=== PATIENT | male | born 1980 | race African-American/Black ===

== ENCOUNTER 2017-08-25 10:22 | Emergency (ER) | payer SELFPAY ==
--- NOTE | 2017-08-25 11:45 | RAD ---
PORTABLE CHEST ONE VIEW: Date: 08-25-17 Time: 11:36 a.m. History: Cough, cold, congestion, shortness of breath, migraine, chest pain. FINDINGS: Comparison is made with exam 09-09-14. The heart size is normal. The lungs are expanded without focal areas of consolidation, pneumothorax, loren pulmonary edema or pleural effusions. IMPRESSION: No radiographic evidence of acute cardiopulmonary process. POS: C
[2017-08-25 11:50] LABS: #Eosinphils 0.1 thou/uL (0.0-0.7); #Lymphocytes 2.2 thou/uL (1.20-3.40); #Monocytes 0.7 thou/uL (0.11-0.59); #Neutrophils 3.3 thou/uL (1.40-6.50); %Basophils 0.1 % (0.0-1.0); %Eosinophils 2.1 % (0.0-10.0); %Lymphocytes 35.1 % (21.0-51.0); %Monocytes 10.6 % (0.0-10.0); Hematocrit 46.4 % (42.0-52.0); Mean Platelet Volume 7.7 fL (7.4-10.4); White Blood Cell (WBC) Count 6.3 thou/uL (4.8-10.8)
[2017-08-25] MEDS ORDERED: Ketorolac Tromethamine 30 MG/ML VIAL ONE (12:07)
[2017-08-25] MEDS ORDERED: Dexamethasone 10 MG/ML VIAL ONE (12:07)
[2017-08-25] MEDS ORDERED: Metoclopramide HCl 10 MG/2 ML VIAL ONE (12:07)
[2017-08-25 12:14] LABS: Troponin I Less than 0.010 ng/mL (< 0.028)
[2017-08-25 12:15] LABS: ALT (SGPT) 48 U/L (8-55); AST (SGOT) 24 U/L (5-34); Alkaline Phosphatase 69 U/L (40-150); Anion Gap 11 mmol/L (10-20); BUN (Urea Nitrogen) 11 mg/dL (8.9-20.6); Bilirubin, Total 0.8 mg/dL (0.2-1.2); CK (CPK) 319 U/L (30-200); Calc. Creatinine Clearance 0 mL/min (70-130); Calcium 9.5 mg/dL (7.8-10.44); Carbon Dioxide 28 mmol/L (22-29); Chloride 101 mmol/L (98-107); Estimated GFR-MDRD Greater than 90; Lipase 7 U/L (8-78); Protein, Total 7.6 g/dL (6.0-8.3)
== END 2017-08-25 13:40 | disposition home or self-care (01) ==
LOC: ERS 10:22
DX: G43.909 Migraine, unspecified, not intractable, without status migrainosus (principal); R07.89 Other chest pain; I25.2 Old myocardial infarction; I10 Essential (primary) hypertension; J45.909 Unspecified asthma, uncomplicated; F17.210 Nicotine dependence, cigarettes, uncomplicated; Z79.899 Other long term (current) drug therapy
CPT/HCPCS: 36415; 71010; 80053; 82553; 83690; 84484; 85025; 93005; 94760; 96374; 96375; J1100; J1885; J2765

== ENCOUNTER 2017-09-27 10:57 | Inpatient (IN) | payer SELFPAY ==
[2017-09-27 11:26] LABS: Bilirubin Negative (Negative); Blood, Urine Trace (Negative); Clarity CLEAR (Clear); Glucose, Urine (Dipstick) Negative (Negative); Leukocyte Moderate (Negative); Nitrite Negative (Negative); Protein, Urine (Dipstick) 100 mg/dL (Neg-Trace); Specific Gravity, Urine 1.018 (1.002-1.036); Urobilinogen 0.2 mg/dL (0.2-1.0)
[2017-09-27 11:27] LABS: #Lymphocytes 2.1 thou/uL (1.20-3.40); #Monocytes 1.1 thou/uL (0.11-0.59); #Neutrophils 7.3 thou/uL (1.40-6.50); %Basophils 0.1 % (0.0-1.0); %Eosinophils 0.1 % (0.0-10.0); %Lymphocytes 20.2 % (21.0-51.0); %Monocytes 10.1 % (0.0-10.0); %Neutrophils 69.5 % (42.0-75.0); Hemoglobin 13.7 g/dL (14.0-18.0); Mean Corpuscular HGB CONC 33.7 g/dL (32.0-36.0); Mean Corpuscular Hemoglobin 27.8 pg (27.0-31.0); Mean Corpuscular Volume 82.6 fl (80.0-94.0); Mean Platelet Volume 8.3 fL (7.4-10.4); Platelet Count 223 thou/uL (130-400); RBC Distribution Width 11.3 % (11.5-14.5); Red Blood Cell (RBC) Count 4.92 mill/uL (4.70-6.10); White Blood Cell (WBC) Count 10.4 thou/uL (4.8-10.8)
[2017-09-27 11:28] LABS: Bacteria/HPF None Seen HPF (None Seen); Hyaline Casts/LPF 0-3 HYALINE CAST LPF (0-3 Hyaline); Pathc Cast-AUWi Flag 0.27 (0-2.49); Squamous Epithelial 0-3 HPF (0-3); WBC/HPF 21-50 HPF (0-3)
[2017-09-27 11:48] LABS: ALT (SGPT) 24 U/L (8-55); AST (SGOT) 19 U/L (5-34); Albumin 4.1 g/dL (3.5-5.0); Alkaline Phosphatase 59 U/L (40-150); Anion Gap 12 mmol/L (10-20); BUN (Urea Nitrogen) 12 mg/dL (8.9-20.6); Bilirubin, Total 0.9 mg/dL (0.2-1.2); Calc. Creatinine Clearance 0 mL/min (70-130); Carbon Dioxide 25 mmol/L (22-29); Chloride 102 mmol/L (98-107); Estimated GFR-MDRD 78; Globulin 3.1 g/dL (2.4-3.5); Glucose 104 mg/dL (70-105); Lipase 12 U/L (8-78); Potassium 3.8 mmol/L (3.5-5.1); Protein, Total 7.2 g/dL (6.0-8.3); Sodium 135 mmol/L (136-145)
[2017-09-27] MEDS ORDERED: ISOVUE-370 76%-LOCM 1 ML ONE (14:37)
[2017-09-27] MEDS ORDERED: Fentanyl 100 MCG/2 ML VIAL ONE ×2 (16:56→19:27)
[2017-09-27] MEDS ORDERED: diphenhydrAMINE 50 MG/ML VIAL ONE (16:57)
[2017-09-27] MEDS ORDERED: Famotidine/PF 20 mg/2ml Vial ONE (16:57)
[2017-09-27] MEDS ORDERED: Ondansetron HCl/PF 4 MG/2 ML Vial ONE (16:57)
[2017-09-27] MEDS ORDERED: methylPREDNISolone Sod Succ/PF 125 MG/2 ML VIAL ONE (16:57)
[2017-09-27] MEDS ORDERED: metroNIDAZOLE 500 MG/100 ML BAG ONE (18:44)
--- NOTE | 2017-09-27 18:47 | CT ---
ABDOMEN CT WITH CONTRAST PELVIC CT WITH CONTRAST: Date: 09/27/17 HISTORY: Abdominal pain x3 days. Lower abdominal pain between the groin, greatest along the midline. Pain is c onstant and burning. Fever. COMPARISON: None. TECHNIQUE: Abdomen and pelvic CT are performed with IV contrast. Patient was premedicated. Coronal reformatted i mages are submitted for interpretation. Enteric contrast was not administered. FINDINGS: ABDOMEN CT: Lung bases are clear. Heart size is normal. Descending thoracic aorta and abdominal aorta have normal caliber. No periaortic fat stranding. Intra and extrahepatic portal vein is patent. Gallbladder is u nremarkable. Liver, spleen, pancreas, and adrenal glands have appropriate enhancement. No gastrohepat ic, retrocrural, or periportal lymphadenopathy. Symmetric enhancement of the kidneys. Bilaterally, no obstructive uropathy. Symmetric attenuation of psoas muscles. Nonspecific periaortic and aortocaval lymph nodes. No mesenteric mass, lymphadenopathy, or free air. No significant free fluid. Limited evaluation of the alimentary canal due to lack of oral contrast. Gastric mucosa, duodenum, an d multiple normal caliber small bowel loops are noted. Ileocecal junction is normal. Fecalization of the terminal ileum is nonspecific. Normal caliber air-filled appendix. The cecum, ascending colon, tr ansverse colon, and descending colon are unremarkable. Occasional diverticulum in descending colon. T here is mucosal thickening with pericolonic fat stranding involving the mid portion of the sigmoid co alan. There is extensive diverticulosis. There are small pockets of extraluminal air suggesting small contained perforation versus diverticula. Largest focus measures approximately 1.0 cm. There is no ev idence of abscess. There is stranding of the adjacent mesentery. PELVIC CT: Possible mild reactive changes in the dome of the urinary bladder. Small amount of free fluid in the pelvis. No mass, lymphadenopathy, or free air. No lytic or blastic lesions in the osseous structures. IMPRESSION: 1. Sigmoid colon diverticulitis. There is no evidence of abscess. However, there are small extralumi nal foci of air suggesting possible contained perforation. 2. Normal caliber appendix. Results of study discussed with Dr. Rosales on 09/27/17 at 1806 hours. CODE CR. POS: [facility]
[2017-09-27] MEDS ORDERED: Acetaminophen 325 MG TAB PO PRN (21:03)
[2017-09-27] MEDS ORDERED: Loratadine 10 MG TAB PO PRN (21:03)
[2017-09-27] MEDS ORDERED: Diabetic Tussin 200 MG/10 ML UDCUP PO PRN (21:03)
[2017-09-27] MEDS ORDERED: Mag-Al 1200 mg/1200 mg/30 ML UDCUP PO PRN (21:03)
[2017-09-27] MEDS ORDERED: Milk Of Magnesia 30 ML UDCUP PO PRN (21:03)
[2017-09-27] MEDS ORDERED: Eucerin (Mineral Oil/Petrolatum,White) 30 gm Jar TOP PRN (21:03)
[2017-09-27] MEDS ORDERED: Ondansetron ODT 4 MG TAB PO PRN (21:03)
[2017-09-27] MEDS ORDERED: Sodium Chloride 0.65% Nasal 44 ML BOT EA NARE PRN (21:03)
[2017-09-27] MEDS ORDERED: Loperamide HCl 2 MG CAP PO PRN (21:03)
[2017-09-27] MEDS ORDERED: Chloraseptic Spray 180 ml Bottle PO PRN (21:03)
[2017-09-27] MEDS ORDERED: Artificial Tears 18 DROP/0.9 ML EA EYE PRN (21:03)
[2017-09-27] MEDS ORDERED: Ondansetron HCl/PF 4 MG/2 ML Vial IVP PRN (21:03)
[2017-09-27] MEDS ORDERED: Senokot 8.6 MG TAB PO PRN (21:03)
[2017-09-27] MEDS ORDERED: Zolpidem Tartrate 5 MG TAB PO PRN (21:03)
[2017-09-27] MEDS ORDERED: hydrALAZINE 20 MG/ML VIAL SLOW IVP PRN (21:03)
[2017-09-27] MEDS ORDERED: Famotidine 20 MG TAB PO SCH (21:15)
[2017-09-27] MEDS: Sodium Chloride 0.9% 1,000 ML IV SCH (21:59)
[2017-09-28] MEDS: Morphine 5 MG/ML SYRINGE SLOW IVP PRN ×4 (00:06→23:57)
[2017-09-28] MEDS ORDERED: Albuterol Sulfate 2.5 mg/3 ml Neb NEB PRN (00:28)
--- NOTE | 2017-09-28 01:55 | HP ---
DATE OF SERVICE: 09/27/2017 PRIMARY CARE PHYSICIAN: Patient does not have any primary care physician, so [facility] call admission. REASON FOR ADMISSION: Acute diverticulitis with microperforation, suspected urinary tract infection. HISTORY OF PRESENT ILLNESS: A 37-year-old -[place] male who presented to the emergency room with complaint of left lower quadrant abdominal pain, which was started on Thursday. After eating food it had gotten worse. He denies any constipation. He denies any hematochezia. He feels nausea, but no vomiting. He denies any UTI symptoms. He denies any abdominal distention, his abdominal pain on left lower quadrant is about 6/10 in intensity, which is constant, dull aching in nature, getting wo rse with identification. He was also having fever or chills for the last one day. With these symptoms, he presented to the emergency room and he had CT of the abdomen and pelvis , whi ch showed sigmoid colon diverticulitis without any abscess, but there was small extraluminal foci of air, which was suspected for contained perforation. Patient has received IV antibiotic therapy in [facility] emergency room and subsequently he is admitted to medical floor for further treatment. Patient never had this type of problem before. He denies any family history of colon cancer. He nev er had any colonoscopy. He denies any constipation. He denies any similar problem in the past. He denies any weight loss. ALLERGIES: IODINATED CONTRAST MEDIA, ONION, and PEANUT. CURRENT MEDICATIONS: Patient is taking lisinopril 5 mg in the morning and 20 mg in the evening. REVIEW OF SYSTEMS: The following complete review of systems was negative, unless otherwise mentioned in the HPI or below: Constitutional: Weight loss or gain, ability to conduct usual activities. Skin: Rash, itching. Eyes: Double vision, pain. ENT/Mouth: Nose bleeding, neck stiffness, pain, tenderness. Cardiovascular: Palpitations, dyspnea on exertion, orthopnea. Respiratory: Shortness of breath, wheezing, cough, hemoptysis, fever or night sweats. Gastrointestinal: Poor appetite, abdominal pain, heartburn, nausea, vomiting, constipation, or diarr hea. Genitourinary: Urgency, frequency, dysuria, nocturia. Musculoskeletal: Pain, swelling. Neurologic/Psychiatric: Anxiety, depression. Allergy/Immunologic: Skin rash, bleeding tendency. Please see my HPI for pertinent positive and negative. All other review of systems reviewed and nega tive except as mentioned in the HPI. PAST MEDICAL HISTORY: Hypertension, obstructive sleep apnea, but the patient is not using any CPAP m achine, asthma, mild intermittent, tobacco abuse disorder. PAST SURGICAL HISTORY: Left hand, finger surgery. PAST PSYCHIATRIC HISTORY: Reviewed and negative. SOCIAL HISTORY: Patient drinks alcohol socially every week. He smokes about 2-3 cigarettes per day. He lives with his girlfriend. No history of illicit drug abuse. FAMILY HISTORY: No strong family history of premature coronary artery disease, stroke or cancer. No family history of colon cancer. EMERGENCY ROOM COURSE: Patient has received fentanyl 100 mcg p.o., Cipro 400 mg, Flagyl 500 mg, repe at dose of fentanyl 100 microgram, Solu-Medrol 125 mg, Pepcid 20 mg, Zofran 4 mg, Benadryl 50 mg, and IV fluid 1 liter. PHYSICAL EXAMINATION: VITAL SIGNS: On arrival, blood pressure 118/84, pulse 89, respiratory rate 20, temperature 99.9, sat uration 96% on room air, weight 104.3 kilograms. GENERAL: Patient is currently in mild distress due to pain. HEENT: Normocephalic, atraumatic. Eyes: Pupils are round, reactive to light. Extraocular muscle i ntact. ENT: Oropharynx within normal limits. Moist mucous membranes. No oral lesions. No pharyngeal eryt leidy, no exudate. NECK: Supple, no JVD, no thyromegaly, no carotid bruit, no jugular venous distention. LUNGS: Clear to auscultation without any rhonchi or rales. CARDIAC: S1, S2 regular without any murmur. ABDOMEN: Patient does have tenderness in left lower quadrant. No peritoneal signs, no distention. Bowel sounds present, no organomegaly. BACK: Unremarkable, no CVA tenderness. EXTREMITIES: Upper extremity passive movements of all joints are normal. Lower extremities: No juventino ma. Good peripheral pulsation. SKIN: No skin rash. HEMATOLOGICAL: No lymphadenopathy. PSYCHIATRIC: Normal affect. SIGNIFICANT LABS: CT of the abdomen and pelvis showing sigmoid colon diverticulitis, no abscess, but small extraluminal foci of air consistent with contained perforation, normal appendix. CBC: WBC 10 .4, hemoglobin 13.7, platelet 223. BMP: Sodium 135, potassium 3.8, chloride 102, carbon dioxide 25, anion gap 12, BUN 12, creatinine 1.25, glucose 104, calcium 9.0. LFT: AST 19, ALT 24, alkaline clemente sphatase 59, albumin 4.1, lipase 12. Urinalysis suggestive of urinary tract infection. ASSESSMENT AND PLAN: 1. Acute diverticulitis, sigmoid colon with a contained perforation. At this point, the patient szymanski s not have any acute abdomen. He has benign abdomen on exam. Patient does not need any acute surgic al intervention. We will try to treat condition medically. If patient's pain gets worse or if exami nation changed then we will consider general surgery evaluation. This patient will need 2 weeks of a ntibiotic therapy and after discharge, he will need a gastroenterology consultation for colonoscopic evaluation. While in hospital, we will continue Cipro 400 mg IV q.12 hourly and Flagyl 500 mg IV q.8 hourly. We will control his pain with morphine 4 mg every 4 hourly. We will continue clear liquid diet and once pain is getting better, then we will advance his diet. We will also provide a probioti c with Florastor 250 mg p.o. daily. We will closely monitor while in hospital. 2. Urinary tract infection, though patient does not have any urinary tract infection symptoms, but h is urinalysis was consistent with urinary tract infection. We will send urine culture. Patient is a lready on Cipro therapy. We will follow up on urine culture result. 3. Hypertension. Currently, the patient has relatively low blood pressure and that is why we will h old on antihypertensive medication and we will start antihypertensive medication. This patient also reports that he is taking lisinopril, but he feels wired side effects after taking lisinopril and candelaria t is why we will consider changing antihypertensive medication during this admission. 4. Obstructive sleep apnea, but the patient is not using any CPAP machine. 5. Asthma. We will continue albuterol nebulization as needed basis. 6. Tobacco abuse disorder. Smoking cessation counseling given. Healthy lifestyle measures discusse d with the patient. 7. Obesity with body mass index 36. Dietary education given, weight loss education given. Healthy lifestyle measures discussed with the patient. 8. Deep venous thrombosis prophylaxis. Lovenox 40 mg subcutaneously daily. 9. Gastrointestinal prophylaxis. Pepcid 20 mg p.o. b.i.d. CODE STATUS: The patient is FULL CODE. Patient does not have any surrogate decision maker. He is making decision by himself. Disposition plan based on clinical course. We are expecting patient's stay in hospital more than 2 m idnights. Plan of care discussed with the patient and family member at bedside.
[2017-09-28] MEDS: metroNIDAZOLE 500 MG in Premix Bag 1 BAG IVPB SCH ×3 (03:00→17:43)
[2017-09-28] MEDS: HYDROcodone/Acetaminophen 5/325 mg Tablet PO PRN ×2 (03:03→07:49)
[2017-09-28 05:11] LABS: #Lymphocytes 0.6 thou/uL (1.20-3.40); #Monocytes 0.2 thou/uL (0.11-0.59); #Neutrophils 6.5 thou/uL (1.40-6.50); %Basophils 0.2 % (0.0-1.0); %Eosinophils 0.1 % (0.0-10.0); %Lymphocytes 8.3 % (21.0-51.0); %Monocytes 2.2 % (0.0-10.0); %Neutrophils 89.2 % (42.0-75.0); Hemoglobin 12.3 g/dL (14.0-18.0); Mean Corpuscular HGB CONC 33.6 g/dL (32.0-36.0); Mean Corpuscular Hemoglobin 28.2 pg (27.0-31.0); Mean Corpuscular Volume 83.8 fl (80.0-94.0); Mean Platelet Volume 8.8 fL (7.4-10.4); Platelet Count 186 thou/uL (130-400); RBC Distribution Width 11.2 % (11.5-14.5); Red Blood Cell (RBC) Count 4.37 mill/uL (4.70-6.10); White Blood Cell (WBC) Count 7.3 thou/uL (4.8-10.8)
[2017-09-28 05:22] LABS: Anion Gap 11 mmol/L (10-20); BUN (Urea Nitrogen) 11 mg/dL (8.9-20.6); Calc. Creatinine Clearance 140 mL/min (70-130); Calcium 8.5 mg/dL (7.8-10.44); Carbon Dioxide 26 mmol/L (22-29); Chloride 102 mmol/L (98-107); Estimated GFR-MDRD Greater than 90; Glucose 178 mg/dL (70-105); Potassium 4.6 mmol/L (3.5-5.1); Sodium 134 mmol/L (136-145)
[2017-09-28] MEDS: Enoxaparin Sodium 40 MG/0.4 ML SYRINGE SC SCH (07:48)
[2017-09-28] MEDS: Sodium Chloride 0.9% 1,000 ML IV SCH ×3 (07:48→20:12)
[2017-09-28] MEDS: Famotidine 20 MG TAB PO SCH ×2 (07:49→20:12)
[2017-09-28] MEDS: Saccharomyces boulardii 250 MG CAP PO SCH (07:49)
[2017-09-28 11:52] VITALS: BMI 36.1
--- NOTE | 2017-09-28 14:12 | PDOC.PN ---
- Subjective Encounter Start Date: 09/28/17 Encounter Start Time: 14:11 Mr. Catalan says he continues to have abdominal pain. He rates it about a 7/10. He has not felt much improvement overnight. He is hungry however, and would like to eat more. He denies nausea or vomiting. - Objective Resuscitation Status: Resuscitation Status FULL:Full Resuscitation MAR Reviewed: Yes Vital Signs & Weight: Vital Signs (12 hours) Temp Pulse Resp BP Pulse Ox 09/28/17 08:00 97.6 F 62 16 108/71 96 09/28/17 04:00 97.9 F 63 20 123/79 96 Weight Admit Weight 231 lb Weight 231 lb I&O: 09/27/17 09/28/17 09/29/17 06:59 06:59 06:59 Intake Total 2400 400 Balance 2400 400 Result Diagrams: 09/28/17 04:15 09/28/17 04:15 Phys Exam - Physical Examination HEENT: PERRLA Respiratory: no wheezing, no rales, no rhonchi, clear to auscultation bilateral Cardiovascular: RRR, no significant murmur Gastrointestinal: soft, positive bowel sounds + Left lower quandrant tenderness no rebound or guarding Musculoskeletal: no edema Dx/Plan (1) Diverticulitis Code(s): K57.92 - DVTRCLI OF INTEST, PART UNSP, W/O PERF OR ABSCESS W/O BLEED Status: Acute (2) Hypertension Code(s): I10 - ESSENTIAL (PRIMARY) HYPERTENSION Status: Acute - Plan * Diverticulitis- will continue IV antibiotics for now. He does not have any warning signs clinically of perforation.. * HTN- blood pressure is stable * Will advance diet to full liquid
[2017-09-29] MEDS: metroNIDAZOLE 500 MG in Premix Bag 1 BAG IVPB SCH ×3 (01:51→18:12)
[2017-09-29 05:55] LABS: #Lymphocytes 1.7 thou/uL (1.20-3.40); #Monocytes 0.7 thou/uL (0.11-0.59); #Neutrophils 9.6 thou/uL (1.40-6.50); %Eosinophils 0.1 % (0.0-10.0); %Lymphocytes 13.9 % (21.0-51.0); %Monocytes 6.2 % (0.0-10.0); %Neutrophils 79.8 % (42.0-75.0); Hemoglobin 11.6 g/dL (14.0-18.0); Mean Corpuscular HGB CONC 33.2 g/dL (32.0-36.0); Mean Corpuscular Hemoglobin 27.9 pg (27.0-31.0); Mean Corpuscular Volume 83.9 fl (80.0-94.0); Mean Platelet Volume 8.9 fL (7.4-10.4); Platelet Count 224 thou/uL (130-400); RBC Distribution Width 11.1 % (11.5-14.5); Red Blood Cell (RBC) Count 4.16 mill/uL (4.70-6.10)
[2017-09-29] MEDS: Morphine 5 MG/ML SYRINGE SLOW IVP PRN ×3 (08:17→23:14)
[2017-09-29] MEDS: Enoxaparin Sodium 40 MG/0.4 ML SYRINGE SC SCH (08:17)
[2017-09-29] MEDS: Famotidine 20 MG TAB PO SCH ×2 (08:17→20:59)
[2017-09-29] MEDS: Saccharomyces boulardii 250 MG CAP PO SCH (08:17)
[2017-09-29] MEDS: Sodium Chloride 0.9% 1,000 ML IV SCH ×2 (11:57→23:14)
--- NOTE | 2017-09-29 14:48 | PDOC.PN ---
- Subjective Encounter Start Date: 09/29/17 Encounter Start Time: 14:46 Mr. Catalan was seen today in follow-up. He says he feels much better. He has less abdominal pain, and has been able to tolerate a full liquid diet. - Objective Resuscitation Status: Resuscitation Status FULL:Full Resuscitation MAR Reviewed: Yes Vital Signs & Weight: Vital Signs (12 hours) Temp Pulse Resp BP Pulse Ox 09/29/17 12:37 97.8 F 81 18 126/81 95 09/29/17 08:00 98.7 F 70 16 116/75 95 09/29/17 07:33 98.4 F 70 18 100 Weight Admit Weight 231 lb Weight 231 lb I&O: 09/28/17 09/29/17 09/30/17 06:59 06:59 06:59 Intake Total 2400 2500 240 Balance 2400 2500 240 Result Diagrams: 09/29/17 04:53 09/28/17 04:15 Phys Exam - Physical Examination HEENT: PERRLA Respiratory: no wheezing, no rales, no rhonchi Cardiovascular: RRR, no significant murmur Gastrointestinal: soft, non-tender, positive bowel sounds Musculoskeletal: no edema Dx/Plan (1) Diverticulitis Code(s): K57.92 - DVTRCLI OF INTEST, PART UNSP, W/O PERF OR ABSCESS W/O BLEED Status: Acute (2) Hypertension Code(s): I10 - ESSENTIAL (PRIMARY) HYPERTENSION Status: Acute - Plan * Diverticulitis- clinically improved- his WBC count is elevated, so will keep in the hospital one more day * Continue with a full liquid diet * HTN- blood pressure is stable * Hopefully home tomorrow.
[2017-09-29] MEDS: HYDROcodone/Acetaminophen 5/325 mg Tablet PO PRN (21:06)
[2017-09-30] MEDS: metroNIDAZOLE 500 MG in Premix Bag 1 BAG IVPB SCH ×2 (01:50→10:52)
[2017-09-30 05:04] LABS: #Lymphocytes 1.7 thou/uL (1.20-3.40); #Monocytes 1.1 thou/uL (0.11-0.59); #Neutrophils 5.6 thou/uL (1.40-6.50); %Basophils 0.4 % (0.0-1.0); %Eosinophils 0.6 % (0.0-10.0); %Lymphocytes 20.6 % (21.0-51.0); %Monocytes 12.4 % (0.0-10.0); %Neutrophils 65.9 % (42.0-75.0); Hemoglobin 12.4 g/dL (14.0-18.0); Mean Corpuscular HGB CONC 32.6 g/dL (32.0-36.0); Mean Corpuscular Hemoglobin 27.4 pg (27.0-31.0); Mean Platelet Volume 8.5 fL (7.4-10.4); Platelet Count 254 thou/uL (130-400); RBC Distribution Width 11.2 % (11.5-14.5); Red Blood Cell (RBC) Count 4.51 mill/uL (4.70-6.10); White Blood Cell (WBC) Count 8.4 thou/uL (4.8-10.8)
[2017-09-30 08:07] VITALS: BP 106/61; TEMP 99.1
[2017-09-30] MEDS: Saccharomyces boulardii 250 MG CAP PO SCH (09:46)
[2017-09-30] MEDS: Famotidine 20 MG TAB PO SCH (09:46)
[2017-09-30] MEDS: Enoxaparin Sodium 40 MG/0.4 ML SYRINGE SC SCH (09:46)
--- NOTE | 2017-09-30 12:26 | PDOC.PN ---
- Subjective Encounter Start Date: 09/30/17 Encounter Start Time: 12:25 Mr. Catalan does not have any complaints today. He is sitting up eating. He wants to go home. - Objective Resuscitation Status: Resuscitation Status FULL:Full Resuscitation MAR Reviewed: Yes Vital Signs & Weight: Vital Signs (12 hours) Temp Pulse Resp BP Pulse Ox 09/30/17 08:06 99.1 F 69 16 106/61 94 L 09/30/17 08:00 99.1 F 69 16 94 L 09/30/17 04:00 98.4 F 72 18 105/69 95 Weight Admit Weight 231 lb Weight 231 lb I&O: 09/29/17 09/30/17 10/01/17 06:59 06:59 06:59 Intake Total 2500 720 720 Balance 2500 720 720 Result Diagrams: 09/30/17 04:26 09/28/17 04:15 Phys Exam - Physical Examination HEENT: PERRLA Respiratory: no wheezing, no rales, no rhonchi Cardiovascular: RRR, no significant murmur Gastrointestinal: soft, non-tender, positive bowel sounds Musculoskeletal: no edema Dx/Plan (1) Diverticulitis Code(s): K57.92 - DVTRCLI OF INTEST, PART UNSP, W/O PERF OR ABSCESS W/O BLEED Status: Acute (2) Hypertension Code(s): I10 - ESSENTIAL (PRIMARY) HYPERTENSION Status: Acute - Plan * Acute Diverticulitis- Improved * Leukocytosis has resolved * He is tolerating p.o. * Stable for discharge home.
--- NOTE | 2017-09-30 12:54 | DIS ---
DATE OF ADMISSION: 09/27/2017 DATE OF DISCHARGE: 09/30/2017 PRIMARY CARE PHYSICIAN: The patient currently does not have a primary care physician. DISCHARGE DISPOSITION: Home. PRIMARY DISCHARGE DIAGNOSES: 1. Acute diverticulitis. 2. Hypertension. DISCHARGE MEDICATIONS: Ciprofloxacin 500 mg 1 p.o. daily for 1 week as well as Flagyl 500 mg t.i.d. for 7 days and lisinopril 5 mg in the a.m. and 20 mg at bedtime. PROCEDURES DONE DURING ADMISSION: The patient had a CT scan of the abdomen and pelvis in which it sh owed sigmoid colon diverticulitis. There was no evidence of abscess; however, there was a small extr aluminal foci of air suggesting possible contained perforation. There is normal caliber appendix CODE STATUS: FULL CODE. ALLERGIES: IODINATED CONTRAST and DYE. HOSPITAL COURSE: Mr. Catalan is a pleasant 37-year-old gentleman, who presented to the emergency room with severe abdominal pain, primarily in the lower quadrant. He had CT scan demonstrated sigmoid di verticulitis. He was admitted and started on IV antibiotics and left n.p.o. initially. After about 2 days of IV antibiotics, he began to improve and his diet was able to be advanced to a full liquid d iet. By the third day, he was asking to go home. He has remained afebrile. His white count has ret urned to normal, and as such, he is being discharged home. He was cautioned that if he has any sympt oms of recurrent abdominal pain or fever to go to either an urgent care or back to emergency room, as he was warned on the possibility of developing a diverticular abscess or perforation. He plans to f hannah up at the [facility] and those arrangements have already been made.
== END 2017-09-30 14:39 | disposition home or self-care (01) | DRG 392 ==
LOC: ERS 10:57 → OBSVTOIN 20:51 → T4-A 20:51
PROVIDERS: ADMIT Family Medicine; ATTEND Family Medicine
DX: K57.32 Diverticulitis of large intestine without perforation or abscess without bleeding (principal); E66.9 Obesity, unspecified; N39.0 Urinary tract infection, site not specified; F17.210 Nicotine dependence, cigarettes, uncomplicated; G47.33 Obstructive sleep apnea (adult) (pediatric); I10 Essential (primary) hypertension; J45.909 Unspecified asthma, uncomplicated; Z68.36 Body mass index [BMI] 36.0-36.9, adult
CPT/HCPCS: 36415; 74177; 80048; 80053; 81003; 81015; 83690; 85025; 87086; 96361; 96365; 96367; 96375; 96376; J2270; A4216; J0744; J1200; J1650; J2405; J2930; J3010; S0028

== ENCOUNTER 2019-12-31 12:27 | Inpatient (IN) | payer SELFPAY ==
--- NOTE | 2019-12-31 13:14 | RAD ---
RADIOGRAPH CHEST 1 VIEW: Supine DATE: 12/31/2019 12:40 PM HISTORY: 39-year-old male status post intubation for altered mental status. COMPARISON: 08/29/2018 FINDINGS: Supine positioning makes this study insensitive for the detection of pneumothorax. There is a new fin ding of diffuse ill-defined heterogeneously moderately increased attenuation at right upper, mid, and lower lung zones. New finding of indistinctness of lateral aspect of right hemidiaphragm. New end otracheal tube distal tip at mid thoracic trachea. New esophagogastric tube coursing through the medial aspect of left upper quadrant, then distal tip ascending in the gastric fundus with distal tip very close to left hemidiaphragm. New finding of gaseous distention of the stomach. No cardiomegaly. Left lung is relatively clear. IMPRESSION: 1. Haziness of the right lung. Nonspecific. 2. Possible right pleural effusion. 3. Status post intubation with endotracheal tube and esophagogastric tube. 4. Gaseous gastric distention. .
[2019-12-31 13:18] LABS: Hemoglobin 16.3 g/dL (14.0-18.0); Mean Corpuscular HGB CONC 32.6 g/dL (32.0-36.0); Mean Corpuscular Hemoglobin 28.1 pg (27.0-31.0); Mean Corpuscular Volume 86.3 fL (78.0-98.0); Mean Platelet Volume 7.8 fL (7.4-10.4); Platelet Count 280 thou/uL (130-400); RBC Distribution Width 12.1 % (11.5-14.5); Red Blood Cell (RBC) Count 5.79 mill/uL (4.70-6.10); White Blood Cell (WBC) Count 23.9 thou/uL (4.8-10.8)
[2019-12-31] MEDS ORDERED: Propofol 1,000 MG/100 ML VIAL IV ONE ×2 (13:18→17:09)
[2019-12-31 13:20] LABS: Actual Bicarbonate (HCO3a) 16.8 mEq/L (22-28); Analyzer IN Cardio ER; Base Excess (BEa) -11.6 mEq/L (-2.0 to +3.0); CO2 Tension 46.7 mmHg (35.0-45.0); Calcium, Ionized 1.09 mmol/L (1.12-1.30); Carboxyhemoglobin (COHb) 1.2 gm% (0.0-3.0); Hemoglobin (Hb) 15.9 g/dL (14.0-18.0); O2 Tension (PaO2), arterial 107.2 mmHg (80.0-100.0); Potassium - ABG Lab 4.26 mmol/L (3.70-5.30)
[2019-12-31 13:21] LABS: Puncture Site RRA; pH, Arterial 7.17 (7.35-7.45)
[2019-12-31 13:22] LABS: ALV-art Gradient 404.825 (0-20)
[2019-12-31] MEDS ORDERED: Sodium Bicarb 50 MEQ/50 ML Abboject 8.4% SYRINGE ONE (13:31)
[2019-12-31 13:36] LABS: Acetaminophen Less than 6.0 mcg/mL (10.0-30.0); Alcohol 211 mg/dL (Less than 10); Salicylate Less than 8.0 mg/dL (15.0-30.0)
[2019-12-31 13:37] LABS: ALT (SGPT) 66 U/L (8-55); AST (SGOT) 170 U/L (5-34); Albumin 3.6 g/dL (3.5-5.0); Alkaline Phosphatase 72 U/L (40-110); Anion Gap 19 mmol/L (10-20); BUN (Urea Nitrogen) 18 mg/dL (8.9-20.6); Bilirubin, Total 0.4 mg/dL (0.2-1.2); Calc. Creatinine Clearance 0 mL/min (70-130); Calcium 7.5 mg/dL (7.8-10.44); Carbon Dioxide 17 mmol/L (22-29); Chloride 109 mmol/L (98-107); Estimated GFR-MDRD 69; Globulin 2.5 g/dL (2.4-3.5); Glucose 99 mg/dL (70-105); Lipase 10 U/L (8-78); Potassium 4.7 mmol/L (3.5-5.1); Protein, Total 6.1 g/dL (6.0-8.3); Sodium 140 mmol/L (136-145)
[2019-12-31 13:39] LABS: Band 5 % (5-11); Lymphocytes 12 % (21-51); MDiff Complete? YES; Metamyelocyte 3 % (0-0); Monocytes 4 % (0-10); Myelocyte 2 % (0-0); Neutrophil 74 % (42-75); Platelet Morphology Comment Appears Adequate; RBC Morphology Normal
[2019-12-31 13:53] LABS: Bilirubin Negative (Negative); Blood, Urine 3+ (Negative); Clarity Turbid (Clear); Glucose, Urine (Dipstick) Normal (Negative); Leukocyte Negative Leu/uL (Negative); Nitrite Negative (Negative); Protein, Urine (Dipstick) 70 mg/dL (Neg-Trace); RBC/HPF 0-3 HPF (0-3); Squamous Epithelial 0-3 HPF (0-3); Urobilinogen Normal mg/dL (Less than 2); WBC/HPF 0-3 HPF (0-3)
[2019-12-31] MEDS ORDERED: Fentanyl 100 MCG/2 ML VIAL ONE ×2 (13:53→14:03)
[2019-12-31] MEDS ORDERED: fentaNYL Citrate/PF 2,000 MCG in Sodium Chloride 0.9% 60 ML IV SCH ×2 (13:57→15:37)
[2019-12-31 13:59] LABS: Amphetamine Not Detected (NotDetected); Barbiturates Screen Not Detected (NotDetected); Benzodiazepine Screen Not Detected (NotDetected); Cocaine Metabolite Screen Not Detected (NotDetected); Medtox Control Line Valid? VALID (VALID); Medtox Reader # READER 4; Methadone Not Detected (NotDetected); Methamphetamine Detected (NotDetected); Opiate Screen Not Detected (NotDetected); Oxycodone Screen Not Detected (NotDetected); Phencyclidine (PCP) Detected (NotDetected); THC/Cannabinoid Screen Not Detected (NotDetected); Tricyclic Screen Not Detected (NotDetected)
[2019-12-31 14:03] LABS: CK (CPK) 11762 U/L (30-200); CKMB 114.8 ng/mL (0-6.6)
[2019-12-31 14:05] LABS: Bacteria/HPF 1+ HPF (None Seen); Mucous/LPF 1+ LPF (<2+)
[2019-12-31] MEDS ORDERED: Midazolam HCl 2 mg/2 ml Vial ONE (14:06)
[2019-12-31] MEDS ORDERED: SYSTANE 3.5 GM TUBE EA EYE PRN (15:08)
[2019-12-31] MEDS ORDERED: Acetaminophen 325 MG Suppository PR PRN (15:08)
[2019-12-31] MEDS ORDERED: Azithromycin 500 MG VIAL ONE (15:10)
[2019-12-31] MEDS ORDERED: cefTRIAXone\\ROCEPHIN 2 GM VIAL ONE (15:10)
[2019-12-31] MEDS ORDERED: Ventilator Sedation Protocol 1 EACH FS SCH (15:15)
[2019-12-31] MEDS ORDERED: Ondansetron PF 4 MG/2 ML Vial IVP PRN (15:15)
[2019-12-31] MEDS ORDERED: Ondansetron ODT 4 MG TAB PO PRN (15:15)
[2019-12-31] MEDS ORDERED: Sodium Chloride 0.9% 1,000 ML IV SCH (15:15)
--- NOTE | 2019-12-31 15:19 | CT ---
CT BRAIN NONCONTRAST: DATE: 12/31/2019 HISTORY: 39-year-old male with altered mental status: Unresponsive FINDINGS: There is no evidence of acute intra-axial or extra-axial hemorrhage. There is no midline shift or any other mass effect. There is no extra-axial fluid collection. There is no evidence of obstructive hydrocephalus. Calvarium is intact. Orogastric tube and endotracheal tube in oral cavity. Associated fluid filling and effacing oropharyngeal and nasopharyngeal airway. Total opacification of nasal cavity. Large air-fluid level opacifying two thirds of right maxillary sinus. IMPRESSION: No acute intracranial findings.
[2019-12-31] MEDS ORDERED: Lorazepam 2 MG/ML VIAL SLOW IVP PRN (15:37)
[2019-12-31] MEDS ORDERED: Fentanyl BOLUS 250 ML IVPB PRN (15:37)
[2019-12-31] MEDS ORDERED: Propofol BOLUS 1,000 MG/100 ML VIAL IV PRN (15:37)
[2019-12-31] MEDS ORDERED: DISCONTINUE PREVIOUS NARCOTIC PAIN MEDICATIONS AND BENZODIAZEPINES FS SCH (15:37)
[2019-12-31 15:57] LABS: Magnesium 1.8 mg/dL (1.6-2.6); Phosphorus 4.2 mg/dL (2.3-4.7)
[2019-12-31] MEDS ORDERED: Lorazepam 2 MG/ML VIAL ONE (16:00)
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
[2019-12-31 16:25] LABS: Lactic Acid 4.5 mmol/L (0.5-2.2)
[2019-12-31 16:38] LABS: Troponin I 0.064 ng/mL (< 0.028)
[2019-12-31] MEDS: Sodium Chloride 0.9% 1,000 ML IV SCH (17:46)
[2019-12-31] MEDS ORDERED: Multivit, Adult Inj 10 ML VIAL IV SCH (18:00)
[2019-12-31] MEDS: Piperacillin/Tazobactam 3.375 GM in Sodium Chloride 0.9% 100 ML IVPB SCH (18:20)
[2019-12-31] MEDS: Multivitamins, Adult 10 ML in Sodium Chloride 0.9% 500 ML IV SCH (18:44)
[2019-12-31 19:48] LABS: Troponin I 0.169 ng/mL (< 0.028)
[2019-12-31] MEDS: Famotidine/PF 20 mg/2ml Vial SLOW IVP SCH (20:22)
[2019-12-31] MEDS: Famotidine 40 MG/5 ML Oral Suspension PER TUBE SCH (20:28)
[2020-01-01] MEDS: Piperacillin/Tazobactam 3.375 GM in Sodium Chloride 0.9% 100 ML IVPB SCH ×5 (05:09→23:58)
[2020-01-01] MEDS: Propofol 1,000 MG/100 ML VIAL IV PRN ×5 (05:09→19:54)
[2020-01-01] MEDS: Sodium Chloride 0.9% 1,000 ML IV SCH ×6 (05:09→19:53)
[2020-01-01 07:50] LABS: Base Excess (BEa) -1.3 mEq/L (-2.0 to +3.0); CO2 Tension 29.1 mmHg (35.0-45.0); Calcium, Ionized 1.01 mmol/L (1.12-1.30); Hemoglobin (Hb) 14.5 g/dL (14.0-18.0); O2 Tension (PaO2), arterial 125.1 mmHg (80.0-100.0); Potassium - ABG Lab 4.18 mmol/L (3.70-5.30); pH, Arterial 7.48 (7.35-7.45)
[2020-01-01 07:51] LABS: ALV-art Gradient 123.725 (0-20); Puncture Site RR
[2020-01-01 08:07] LABS: Hemoglobin 13.9 g/dL (14.0-18.0); Mean Corpuscular HGB CONC 32.5 g/dL (32.0-36.0); Mean Corpuscular Hemoglobin 27.6 pg (27.0-31.0); Mean Corpuscular Volume 84.7 fL (78.0-98.0); Mean Platelet Volume 8.1 fL (7.4-10.4); Platelet Count 242 thou/uL (130-400); Red Blood Cell (RBC) Count 5.05 mill/uL (4.70-6.10); White Blood Cell (WBC) Count 15.8 thou/uL (4.8-10.8)
--- NOTE | 2020-01-01 08:16 | RAD ---
RADIOGRAPH CHEST 1 VIEW: Supine DATE: 01/01/2020 HISTORY: 39-year-old male in respiratory distress COMPARISON: 12/31/2019 FINDINGS: There is no pulmonary edema. Supine positioning makes this study insensitive for the detection of pne umothorax. Endotracheal tube remains. Esophagogastric tube remains. There is interval resolution of the diffuse hazy infiltrates in the right mid and upper lung zones. Mild haziness remains at right ba se with indistinctness of right hemidiaphragm. Interval development of subsegmental atelectasis at left midlung zone. No cardiomegaly. Left lateral costophrenic angle is sharp. IMPRESSION: 1. Interval improvement in aeration of the right lung, with resolution of infiltrates in right mid an d upper lung zones. 2. Changes remain at right base, perhaps small pleural effusion and underlying mild atelectasis or in filtrate. 3. No pulmonary edema..
[2020-01-01 08:23] LABS: ALT (SGPT) 149 U/L (8-55); AST (SGOT) 409 U/L (5-34); Albumin 2.8 g/dL (3.5-5.0); Alkaline Phosphatase 61 U/L (40-110); Anion Gap 14 mmol/L (10-20); BUN (Urea Nitrogen) 21 mg/dL (8.9-20.6); Bilirubin, Total 0.6 mg/dL (0.2-1.2); Calc. Creatinine Clearance 107 mL/min (70-130); Calcium 6.8 mg/dL (7.8-10.44); Carbon Dioxide 22 mmol/L (22-29); Chloride 112 mmol/L (98-107); Estimated GFR-MDRD 77; Globulin 2.3 g/dL (2.4-3.5); Glucose 94 mg/dL (70-105); Potassium 5.2 mmol/L (3.5-5.1); Protein, Total 5.1 g/dL (6.0-8.3); Sodium 143 mmol/L (136-145)
[2020-01-01 08:36] LABS: Hypersemented Neutrophil MODERATE; Lymphocytes 11 % (21-51); MDiff Complete? YES; Monocytes 6 % (0-10); Neutrophil 83 % (42-75); Platelet Morphology Comment Appears Adequate
[2020-01-01 08:50] LABS: CK (CPK) 28553 U/L (30-200)
[2020-01-01] MEDS: Famotidine 40 MG/5 ML Oral Suspension PER TUBE SCH ×2 (09:00→20:01)
[2020-01-01] MEDS: Famotidine/PF 20 mg/2ml Vial SLOW IVP SCH ×2 (09:00→19:54)
--- NOTE | 2020-01-01 11:48 | PDOC.HOSPP ---
- Subjective Encounter Date: 01/01/20 Encounter Time: 11:00 Subjective: Patient seen and examined for resp failure/OD. On Vent. No overnight events - Objective Vital Signs & Weight: Vital Signs (12 hours) Temp Pulse Resp BP Pulse Ox 01/01/20 10:26 94 127/87 01/01/20 10:00 24 H 01/01/20 08:00 100.0 F H 24 H 01/01/20 07:08 94 129/90 100 01/01/20 06:00 24 H 01/01/20 04:00 99.6 F 24 H 01/01/20 02:46 97 119/85 01/01/20 02:00 24 H 01/01/20 00:00 99.9 F H 24 H Weight Weight 214 lb 15.211 oz Most Recent Monitor Data Heart Rate from ECG 96 NIBP 139/104 NIBP BP-Mean 115 Respiration from ECG 24 SpO2 100 I&O: 12/31/19 01/01/20 01/02/20 06:59 06:59 06:59 Intake Total 2703.7 30.8 Output Total 1615 250 Balance 1088.7 -219.2 Result Diagrams: 01/01/20 07:54 01/01/20 07:54 Radiology Reviewed by me: Yes (CT brain - negative, CXR - improvement) EKG Reviewed by me: Yes (Tele SR) Hospitalist ROS - Medication Medications: Active Medications Generic Name Dose Route Start Last Admin Trade Name Freq PRN Reason Stop Dose Admin Famotidine 20 mg 12/31/19 21:00 01/01/20 09:00 Pepcid SLOW IVP 20 mg Q12HR GIULIANA Administration Famotidine 20 mg 12/31/19 21:00 01/01/20 09:00 Pepcid PER TUBE Not Given BID GIULIANA Piperacillin Sod/Tazobactam 100 mls @ 200 mls/hr 12/31/19 18:00 01/01/20 05: 09 Sod 3.375 gm/ Sodium Chloride IVPB 100 mls Q6HR GIULIANA Administration Sodium Chloride 1,000 mls @ 200 mls/hr 12/31/19 15:30 01/01/20 10:57 Normal Saline 0.9% IV 1,000 mls .Q5H GIULIANA Administration Multivitamins 10 ml/ Sodium 510 mls @ 127.5 mls/hr 12/31/19 18:00 12/31/19 18 :44 Chloride IV 510 mls 1800 GIULIANA Administration Propofol 1,000 mg 12/31/19 15:37 01/01/20 10:00 Diprivan IV 01/30/20 15:37 1,000 mg INF PRN Administration TO ACHIEVE GOAL RASS Protocol - Exam General Appearance: NAD General - other findings: on Vent Heart: RRR, no gallops, no rubs, normal peripheral pulses Respiratory: no wheezes, normal chest expansion, rales (R), rhonchi (R) Gastrointestinal: soft, non-distended, no guarding, no rigidity Extremities: no cyanosis, no clubbing Skin: normal turgor, no lesions Neurological - other findings: Neuro/Psych - cannot assess due to sedation Hosp A/P - Plan DVT proph w/lovenox, DVT proph w/SCDs, GI proph 1. Acute hypoxic and hypercapnic respiratory failure secondary to drug overdose. 2. Sepsis due to aspiration pneumonia. 3. Metabolic acidosis/lactic acidosis. 4. Acute kidney injury. 5. Rhabdomyolysis secondary to drug abuse. 6. Alcohol intoxication. 7. Abnormal LFTs probably secondary to alcoholism. 8. Suspected suicidal attempt. 9. Elevated troponin secondary to rhabdomyolysis. 10. Abnormal TSH. PLAN: Cont IV NS Cont IV Zosyn Await cultures AM labs CXR/ABGs in AM Cont other meds as above
[2020-01-01] MEDS: Multivitamins, Adult 10 ML in Sodium Chloride 0.9% 500 ML IV SCH (17:17)
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
[2020-01-02] MEDS: Propofol 1,000 MG/100 ML VIAL IV PRN ×2 (01:06→05:12)
[2020-01-02] MEDS: Sodium Chloride 0.9% 1,000 ML IV SCH ×5 (03:15→21:44)
[2020-01-02 03:51] LABS: Hypochromia SLIGHT = 6-15 cells (100X) (0-5/hpf); Lymphocytes 13 % (21-51); MDiff Complete? YES; Mean Corpuscular HGB CONC 33.7 g/dL (32.0-36.0); Mean Corpuscular Hemoglobin 28.5 pg (27.0-31.0); Mean Corpuscular Volume 84.5 fL (78.0-98.0); Mean Platelet Volume 8.1 fL (7.4-10.4); Monocytes 4 % (0-10); Neutrophil 80 % (42-75); Platelet Count 186 thou/uL (130-400); Platelet Morphology Comment Appears Adequate; RBC Distribution Width 11.9 % (11.5-14.5); Reactive Lymphocytes 3 % (0-10); White Blood Cell (WBC) Count 16.3 thou/uL (4.8-10.8)
[2020-01-02 03:53] LABS: ALT (SGPT) 145 U/L (8-55); AST (SGOT) 368 U/L (5-34); Albumin 2.6 g/dL (3.5-5.0); Alkaline Phosphatase 59 U/L (40-110); Anion Gap 10 mmol/L (10-20); BUN (Urea Nitrogen) 15 mg/dL (8.9-20.6); Bilirubin, Total 1.1 mg/dL (0.2-1.2); Calc. Creatinine Clearance 116 mL/min (70-130); Calcium 7.2 mg/dL (7.8-10.44); Carbon Dioxide 22 mmol/L (22-29); Chloride 115 mmol/L (98-107); Estimated GFR-MDRD 84; Globulin 2.2 g/dL (2.4-3.5); Glucose 129 mg/dL (70-105); Magnesium 1.9 mg/dL (1.6-2.6); Potassium 3.5 mmol/L (3.5-5.1); Protein, Total 4.8 g/dL (6.0-8.3); Sodium 143 mmol/L (136-145)
[2020-01-02 04:17] LABS: CK (CPK) 21224 U/L (30-200)
[2020-01-02] MEDS: Piperacillin/Tazobactam 3.375 GM in Sodium Chloride 0.9% 100 ML IVPB SCH ×4 (05:12→23:58)
--- NOTE | 2020-01-02 07:42 | RAD ---
Exam: Chest one view HISTORY:Ventilated patient. Respiratory distress. COVID assessment. Comparison: 01/01/2020 FINDINGS: Lines and tubes: Redemonstration of endotracheal and nasogastric tube. Cardiac silhouette: Normal Aorta: Unremarkable Pulmonary vessels: Normal Costophrenic angles: Stable small right-sided pleural effusion. LUNGS: Patchy interstitial and alveolar opacities which are progressed since the previous examination . Persistent opacification of the right lung base with partial obscuration of the right hemidiaphragm Pneumothorax: None Osseous abnormalities: None IMPRESSION: Scattered interstitial and alveolar opacities as described above. Findings may be on the basis of an infiltrate. Viral pneumonia such as COVID cannot be excluded.
[2020-01-02 08:02] LABS: Actual Bicarbonate (HCO3a) 20.7 mEq/L (22-28); Base Excess (BEa) -0.9 mEq/L (-2.0 to +3.0); CO2 Tension 26.1 mmHg (35.0-45.0); Calcium, Ionized 1.09 mmol/L (1.12-1.30); Carboxyhemoglobin (COHb) 1.4 gm% (0.0-3.0); Hemoglobin (Hb) 12.5 g/dL (14.0-18.0); O2 Tension (PaO2), arterial 75.5 mmHg (80.0-100.0); Potassium - ABG Lab 3.48 mmol/L (3.70-5.30); pH, Arterial 7.52 (7.35-7.45)
[2020-01-02 08:04] LABS: Puncture Site RRA
[2020-01-02 08:05] LABS: ALV-art Gradient 105.775 (0-20)
[2020-01-02] MEDS: Famotidine/PF 20 mg/2ml Vial SLOW IVP SCH ×2 (08:59→21:05)
[2020-01-02] MEDS: Famotidine 40 MG/5 ML Oral Suspension PER TUBE SCH ×2 (09:00→21:05)
--- NOTE | 2020-01-02 11:15 | PRG ---
DATE OF SERVICE: 01/02/2020 SUBJECTIVE: Dameon Catalan would not awaken and follow commands during brief sedation holidays. OBJECTIVE: VITAL SIGNS: This morning, heart rates in 80s, blood pressure 102/ 71, respiratory rates in the teens to low 20s. LUNGS: Clear. HEART: Regular rhythm. ABDOMEN: Soft. EXTREMITIES: Without edema. LABORATORY DATA: White count 16.3, hemoglobin 12.0, platelets 186. Sodium 143, potassium 3.5, chloride 115, bicarb 22, BUN 15, creatinine 1.17. PH 7.52, CO2 of 26, pO2 of 75. IMPRESSION: 1. Respiratory failure associated with multiple substance overdose. 2. Patchy bilateral infiltrates, likely as a result of that aspiration. We will add Precedex and try to use shorter acting drugs. We will continue with Zosyn. Steroids will be added. It is unclear how soon he will be extubated, may be all depends on his clinical condition and whether or not he sustained some type of brain injury associated with his illness that led to intubation. Critical care time 35 min. Job ID: [id number] MTDD
[2020-01-02] MEDS: methylPREDNISolone Sod Succ 40 MG VIAL IVP SCH ×3 (12:20→23:58)
--- NOTE | 2020-01-02 13:28 | PDOC.HOSPP ---
- Subjective Encounter Date: 01/02/20 Encounter Time: 11:10 Subjective: on vent, does not respond to verbal stimuli or touch - Objective Vital Signs & Weight: Vital Signs (12 hours) Temp Pulse Resp BP Pulse Ox 01/02/20 11:05 76 01/02/20 10:00 15 01/02/20 08:00 99 01/02/20 07:57 18 01/02/20 07:53 84 01/02/20 07:00 97.7 F 01/02/20 05:55 24 H 01/02/20 04:00 99.7 F H 24 H 01/02/20 02:23 99 101/72 01/02/20 02:00 24 H Weight Weight 218 lb 7.649 oz Most Recent Monitor Data Heart Rate from ECG 77 NIBP 107/73 NIBP BP-Mean 84 Respiration from ECG 15 SpO2 100 I&O: 01/01/20 01/02/20 01/03/20 06:59 06:59 06:59 Intake Total 2703.7 5956.1 Output Total 1615 2745 810 Balance 1088.7 3211.1 -810 Result Diagrams: 01/02/20 03:20 01/02/20 03:20 Hospitalist ROS - Medication Medications: Active Medications Generic Name Dose Route Start Last Admin Trade Name Freq PRN Reason Stop Dose Admin Famotidine 20 mg 12/31/19 21:00 01/02/20 08:59 Pepcid SLOW IVP 20 mg Q12HR GIULIANA Administration Famotidine 20 mg 12/31/19 21:00 01/02/20 09:00 Pepcid PER TUBE Not Given BID GIULIANA Piperacillin Sod/Tazobactam 100 mls @ 200 mls/hr 12/31/19 18:00 01/02/20 12: 19 Sod 3.375 gm/ Sodium Chloride IVPB 100 mls Q6HR GIULIANA Administration Multivitamins 10 ml/ Sodium 510 mls @ 127.5 mls/hr 12/31/19 18:00 01/01/20 17 :17 Chloride IV 510 mls 1800 GIULIANA Administration Dexmedetomidine HCl 200 mcg/ 50 mls @ 0 mls/hr 01/02/20 08:45 01/02/20 08:49 Sodium Chloride IVPB 50 mls INF GIULIANA Administration Protocol Per Protocol Sodium Chloride 1,000 mls @ 100 mls/hr 01/02/20 08:38 01/02/20 08:59 Normal Saline 0.9% IV 1,000 mls .Q10H GIULIANA Administration Methylprednisolone Sodium Succinate 40 mg 01/02/20 12:00 01/02/20 12:20 Solu-Medrol IVP 40 mg Q6HR GIULIANA Administration Propofol 1,000 mg 12/31/19 15:37 01/02/20 05:12 Diprivan IV 01/30/20 15:37 1,000 mg INF PRN Administration TO ACHIEVE GOAL RASS Protocol - Exam Eye: PERRL, anicteric sclera ENT: no oropharyngeal lesions, moist mucosa Neck: supple, no JVD Heart: RRR, no murmur Respiratory: no wheezes, no rales Gastrointestinal: soft, non-tender, non-distended, normal bowel sounds Extremities: no cyanosis, no edema Neurological: cranial nerve grossly intact, no focal deficits Hosp A/P (1) Acute respiratory failure with hypoxia Code(s): J96.01 - ACUTE RESPIRATORY FAILURE WITH HYPOXIA Status: Acute (2) substance overdose Status: Acute (3) SREE (acute kidney injury) Code(s): N17.9 - ACUTE KIDNEY FAILURE, UNSPECIFIED Status: Resolved (4) Aspiration pneumonia Code(s): J69.0 - PNEUMONITIS DUE TO INHALATION OF FOOD AND VOMIT Status: Acute Qualifiers: Aspiration pneumonia type: due to regurgitated food Laterality: bilateral (5) Rhabdomyolysis Code(s): M62.82 - RHABDOMYOLYSIS Status: Acute (6) Elevated LFTs Code(s): R79.89 - OTHER SPECIFIED ABNORMAL FINDINGS OF BLOOD CHEMISTRY Status : Acute (7) Alcohol intoxication Status: Acute (8) Hypertension Code(s): I10 - ESSENTIAL (PRIMARY) HYPERTENSION Status: Chronic Qualifiers: Hypertension type: essential hypertension Qualified Code(s): I10 - Essential (primary) hypertension - Plan weaning per pulm advice on empiric zosyn, nebs, iv hydration uds was +ve for meth, pcp and alc levels of 211 ck levels and lft's are steadily decreasing, renal function is normal will obtain echo to see if for lv function with likely lvk with chr h/o substance use? hemostable
[2020-01-02] MEDS: Morphine 2 MG/ML SYRINGE SLOW IVP PRN ×2 (16:03→21:46)
[2020-01-02] MEDS: Multivitamins, Adult 10 ML in Sodium Chloride 0.9% 500 ML IV SCH (17:50)
[2020-01-03 04:06] LABS: Band 6 % (5-11); Hemoglobin 11.7 g/dL (14.0-18.0); Lymphocytes 5 % (21-51); MDiff Complete? YES; Mean Corpuscular HGB CONC 32.5 g/dL (32.0-36.0); Mean Corpuscular Hemoglobin 28.2 pg (27.0-31.0); Mean Corpuscular Volume 86.7 fL (78.0-98.0); Mean Platelet Volume 8.9 fL (7.4-10.4); Monocytes 2 % (0-10); Neutrophil 86 % (42-75); Platelet Count 188 thou/uL (130-400); Platelet Morphology Comment Appears Adequate; RBC Distribution Width 11.9 % (11.5-14.5); Reactive Lymphocytes 1 % (0-10); Red Blood Cell (RBC) Count 4.13 mill/uL (4.70-6.10); White Blood Cell (WBC) Count 18.7 thou/uL (4.8-10.8)
[2020-01-03] MEDS: Morphine 2 MG/ML SYRINGE SLOW IVP PRN (04:08)
[2020-01-03 04:23] LABS: ALT (SGPT) 166 U/L (8-55); AST (SGOT) 361 U/L (5-34); Albumin 2.9 g/dL (3.5-5.0); Alkaline Phosphatase 60 U/L (40-110); Anion Gap 13 mmol/L (10-20); BUN (Urea Nitrogen) 13 mg/dL (8.9-20.6); Bilirubin, Total 1.2 mg/dL (0.2-1.2); Calc. Creatinine Clearance 155 mL/min (70-130); Calcium 8.3 mg/dL (7.8-10.44); Carbon Dioxide 20 mmol/L (22-29); Chloride 115 mmol/L (98-107); Estimated GFR-MDRD Greater than 90; Globulin 2.6 g/dL (2.4-3.5); Glucose 169 mg/dL (70-105); Potassium 4.6 mmol/L (3.5-5.1); Protein, Total 5.5 g/dL (6.0-8.3); Sodium 143 mmol/L (136-145)
[2020-01-03 04:34] LABS: CK (CPK) 16448 U/L (30-200)
[2020-01-03] MEDS: methylPREDNISolone Sod Succ 40 MG VIAL IVP SCH ×2 (05:04→12:02)
[2020-01-03] MEDS: Piperacillin/Tazobactam 3.375 GM in Sodium Chloride 0.9% 100 ML IVPB SCH ×3 (05:05→18:11)
[2020-01-03 07:47] LABS: Actual Bicarbonate (HCO3a) 19.7 mEq/L (22-28); Base Excess (BEa) -4.7 mEq/L (-2.0 to +3.0); CO2 Tension 34.4 mmHg (35.0-45.0); Calcium, Ionized 1.16 mmol/L (1.12-1.30); Carboxyhemoglobin (COHb) 1.3 gm% (0.0-3.0); Hemoglobin (Hb) 12.3 g/dL (14.0-18.0); Potassium - ABG Lab 4.31 mmol/L (3.70-5.30); pH, Arterial 7.38 (7.35-7.45)
[2020-01-03 07:48] LABS: Puncture Site RRA
--- NOTE | 2020-01-03 07:56 | RAD ---
Chest one view HISTORY: Dyspnea. Pneumonia. Follow-up. COMPARISON: 01/02/2020. FINDINGS: Cardiac silhouette is magnified by projection. Pulmonary vasculature are unremarkable. Subtle patchy areas of ill-defined parenchymal opacity involving each lung are unchanged in appearanc e. Mediastinum is midline. Lines and tubes unchanged in position. No evidence of pneumothorax. court recording monitor leads overlie the chest. IMPRESSION : Subtle bilateral patchy infiltrates and other findings are stable.
[2020-01-03] MEDS: Famotidine/PF 20 mg/2ml Vial SLOW IVP SCH (07:59)
[2020-01-03] MEDS: Famotidine 40 MG/5 ML Oral Suspension PER TUBE SCH (08:06)
[2020-01-03] MEDS ORDERED: THIAMINE HCL IVPB ONE (11:00)
[2020-01-03] MEDS ORDERED: SODIUM CHLORIDE 0.9% IVPB ONE (11:00)
[2020-01-03] MEDS ORDERED: FOLIC ACID IVPB ONE (11:00)
--- NOTE | 2020-01-03 14:02 | PDOC.HOSPP ---
- Subjective Encounter Date: 01/03/20 Encounter Time: 12:15 Subjective: awakens easily on vent - Objective Vital Signs & Weight: Vital Signs (12 hours) Temp Pulse Resp BP Pulse Ox 01/03/20 12:00 98.8 F 01/03/20 08:00 14 100 01/03/20 07:42 48 L 01/03/20 07:00 98.6 F 01/03/20 05:54 13 01/03/20 04:00 99.6 F 14 01/03/20 03:23 57 L 109/70 Weight Admit Weight 212 lb Weight 218 lb 14.704 oz Most Recent Monitor Data Heart Rate from ECG 52 NIBP 127/85 NIBP BP-Mean 99 Respiration from ECG 18 SpO2 97 I&O: 01/02/20 01/03/20 01/04/20 06:59 06:59 06:59 Intake Total 5956.1 3763.1 46 Output Total 2745 2861 560 Balance 3211.1 902.1 -514 Result Diagrams: 01/03/20 03:39 01/03/20 03:39 Hospitalist ROS - Medication Medications: Active Medications Generic Name Dose Route Start Last Admin Trade Name Freq PRN Reason Stop Dose Admin Famotidine 20 mg 12/31/19 21:00 01/03/20 07:59 Pepcid SLOW IVP 20 mg Q12HR GIULIANA Administration Piperacillin Sod/Tazobactam 100 mls @ 200 mls/hr 12/31/19 18:00 01/03/20 12: 01 Sod 3.375 gm/ Sodium Chloride IVPB 100 mls Q6HR GIULIANA Administration Sodium Chloride 1,000 mls @ 100 mls/hr 01/02/20 08:38 01/02/20 21:44 Normal Saline 0.9% IV 1,000 mls .Q10H GIULIANA Administration Dexmedetomidine HCl 400 mcg/ 100 mls @ 0 mls/hr 01/02/20 19:15 01/03/20 07:47 Sodium Chloride IVPB 100 mls INF GIULIANA Administration Protocol Per Protocol Methylprednisolone Sodium Succinate 40 mg 01/02/20 12:00 01/03/20 12:02 Solu-Medrol IVP 40 mg Q6HR GIULIANA Administration Morphine Sulfate 2 mg 12/31/19 15:37 01/03/20 04:08 Morphine SLOW IVP 01/30/20 15:37 2 mg Q1H PRN Administration BREAKTHROUGH PAIN/Agitation Propofol 1,000 mg 12/31/19 15:37 01/02/20 05:12 Diprivan IV 01/30/20 15:37 1,000 mg INF PRN Administration TO ACHIEVE GOAL RASS Protocol - Exam Eye: PERRL, anicteric sclera ENT: no oropharyngeal lesions, moist mucosa Neck: supple, no JVD Heart: RRR, no murmur Respiratory: no wheezes, no rales Gastrointestinal: soft, non-tender, non-distended, normal bowel sounds Extremities: no cyanosis, no edema Neurological: cranial nerve grossly intact, no focal deficits Hosp A/P (1) Acute respiratory failure with hypoxia Code(s): J96.01 - ACUTE RESPIRATORY FAILURE WITH HYPOXIA Status: Acute (2) substance overdose Status: Acute (3) SREE (acute kidney injury) Code(s): N17.9 - ACUTE KIDNEY FAILURE, UNSPECIFIED Status: Resolved (4) Aspiration pneumonia Code(s): J69.0 - PNEUMONITIS DUE TO INHALATION OF FOOD AND VOMIT Status: Acute Qualifiers: Aspiration pneumonia type: due to regurgitated food Laterality: bilateral (5) Rhabdomyolysis Code(s): M62.82 - RHABDOMYOLYSIS Status: Acute (6) Elevated LFTs Code(s): R79.89 - OTHER SPECIFIED ABNORMAL FINDINGS OF BLOOD CHEMISTRY Status : Acute (7) Alcohol intoxication Status: Acute (8) Hypertension Code(s): I10 - ESSENTIAL (PRIMARY) HYPERTENSION Status: Chronic Qualifiers: Hypertension type: essential hypertension Qualified Code(s): I10 - Essential (primary) hypertension - Plan weaning per pulm advice on empiric zosyn, nebs, iv hydration uds was +ve for meth, pcp and alc levels of 211 ck levels and lft's are steadily decreasing, renal function is normal echo shows normal ef, no signs of lvh per report hemostable
[2020-01-03] MEDS: Sodium Chloride 0.9% 1,000 ML IV SCH (15:40)
--- NOTE | 2020-01-03 17:20 | PRG ---
DATE OF SERVICE: 01/03/2020 SUBJECTIVE: Kevon Catalan awakened this morning, was following commands. He is in no distress. He passed a leak test. OBJECTIVE: VITAL SIGNS: Heart rates in 80s, blood pressure 145/92 this afternoon, respiratory rates in the teens. LUNGS: Clear. HEART: Regular rhythm. ABDOMEN: Soft. EXTREMITIES: No clubbing, cyanosis, or edema. NEURO: Nonfocal. DIAGNOSTIC STUDIES: Echocardiogram showed normal ejection fraction. Chest x-ray shows patchy infiltrates bilaterally and I suspect mucus plugging or aspiration. IMPRESSION AND PLAN: Alcohol and drug overdose, clinically stable. He has been subsequently extubated after he met criteria for weaning and extubation. He says he was up all night doing whiskey shots. It has been explained to him that he came close to dying based on some questionable life choices. He says he thinks he can stop drinking for a couple of months. He is clinically stable to move out of Critical Care Unit in my opinion. With his rhabdomyolysis, he needs to continue with IV hydration. All of his sedative drugs will be discontinued. He has been given thiamine. His chest x- rays will be discontinued. Now, we will put him on Augmentin, but I do not feel he needs IV antimicrobial therapy at this time. We will sign off when he transfers out of the Critical Care Unit. Critical care time 35 min. Job ID: [id number] MTDD
[2020-01-03] MEDS: Amoxicillin/Potassium Clav 875 MG TAB PO SCH (20:48)
[2020-01-03] MEDS: Acetaminophen 325 MG/10.15 ML UDCUP PO PRN (20:48)
[2020-01-04] MEDS: Piperacillin/Tazobactam 3.375 GM in Sodium Chloride 0.9% 100 ML IVPB SCH ×3 (01:05→13:13)
[2020-01-04 06:14] LABS: ALT (SGPT) 231 U/L (8-55); AST (SGOT) 436 U/L (5-34); Albumin 2.9 g/dL (3.5-5.0); Alkaline Phosphatase 58 U/L (40-110); Anion Gap 10 mmol/L (10-20); BUN (Urea Nitrogen) 10 mg/dL (8.9-20.6); Bilirubin, Total 0.7 mg/dL (0.2-1.2); Calc. Creatinine Clearance 155 mL/min (70-130); Calcium 7.7 mg/dL (7.8-10.44); Carbon Dioxide 20 mmol/L (22-29); Chloride 114 mmol/L (98-107); Estimated GFR-MDRD Greater than 90; Globulin 2.5 g/dL (2.4-3.5); Glucose 108 mg/dL (70-105); Hemoglobin 10.2 g/dL (14.0-18.0); Hypochromia SLIGHT = 6-15 cells (100X) (0-5/hpf); Lymphocytes 8 % (21-51); MDiff Complete? YES; Mean Corpuscular HGB CONC 30.7 g/dL (32.0-36.0); Mean Corpuscular Volume 87.7 fL (78.0-98.0); Mean Platelet Volume 8.8 fL (7.4-10.4); Monocytes 7 % (0-10); Neutrophil 85 % (42-75); Platelet Count 206 thou/uL (130-400); Platelet Morphology Comment Appears Adequate; Potassium 3.3 mmol/L (3.5-5.1); Protein, Total 5.4 g/dL (6.0-8.3); RBC Distribution Width 11.9 % (11.5-14.5); Sodium 141 mmol/L (136-145); White Blood Cell (WBC) Count 19.5 thou/uL (4.8-10.8)
[2020-01-04 06:43] LABS: CK (CPK) 15179 U/L (30-200)
[2020-01-04] MEDS: Sodium Chloride 0.9% 1,000 ML IV SCH ×2 (07:17→10:09)
[2020-01-04] MEDS: methylPREDNISolone Sod Succ 40 MG VIAL IVP SCH (08:33)
[2020-01-04] MEDS: Folic Acid 1 MG TAB PER TUBE SCH (08:37)
[2020-01-04] MEDS: Thiamine 100 MG TAB PER TUBE SCH (08:37)
[2020-01-04] MEDS: Multivit, Therapeutic 1 TAB PER TUBE SCH (08:37)
[2020-01-04] MEDS: Amoxicillin/Potassium Clav 875 MG TAB PO SCH ×2 (08:37→20:03)
[2020-01-04] MEDS: Acetaminophen 325 MG/10.15 ML UDCUP PO PRN (10:05)
--- NOTE | 2020-01-04 12:24 | PDOC.HOSPP ---
- Subjective Encounter Date: 01/04/20 Encounter Time: 09:35 Subjective: no sob, is tolerating oral diet has not ambulated yet no chest pain or palp responds well to verbal question - Objective Vital Signs & Weight: Vital Signs (12 hours) Temp Pulse Resp BP Pulse Ox 01/04/20 11:03 98.2 F 62 20 115/70 98 01/04/20 08:00 97 01/04/20 07:13 98.1 F 65 18 116/68 97 01/04/20 04:00 99.5 F 70 18 103/64 100 01/04/20 02:58 99 Weight Admit Weight 212 lb Weight 214 lb 11.684 oz Most Recent Monitor Data Heart Rate from ECG 78 NIBP 145/92 NIBP BP-Mean 109 Respiration from ECG 20 SpO2 91 I&O: 01/03/20 01/04/20 01/05/20 06:59 06:59 06:59 Intake Total 3763.1 3005 Output Total 2861 3560 Balance 902.1 -555 Result Diagrams: 01/04/20 05:38 01/04/20 05:38 Hospitalist ROS - Medication Medications: Active Medications Generic Name Dose Route Start Last Admin Trade Name Freq PRN Reason Stop Dose Admin Acetaminophen 650 mg 12/31/19 15:08 01/04/20 10:05 Tylenol Elixir PO 650 mg Q6H PRN Administration Fever > 101 or Mild Pain Amoxicillin/Clavulanate Potassium 875 mg 01/03/20 21:00 01/04/20 08:37 Augmentin PO 875 mg Q12HR GIULIANA Administration Folic Acid 1 mg 01/04/20 09:00 01/04/20 08:37 Folvite PER TUBE 1 mg DAILY GIULIANA Administration Sodium Chloride 1,000 mls @ 100 mls/hr 01/02/20 08:38 01/04/20 10:09 Normal Saline 0.9% IV 1,000 mls .Q10H GIULIANA Administration Methylprednisolone Sodium Succinate 40 mg 01/04/20 09:00 01/04/20 08:33 Solu-Medrol IVP 40 mg DAILY GIULIANA Administration Multivitamins 1 tab 01/04/20 09:00 01/04/20 08:37 Theragran PER TUBE 1 tab DAILY GIULIANA Administration Pantoprazole Sodium 40 mg 01/04/20 09:00 01/04/20 08:37 Protonix PO 40 mg DAILY GIULIANA Administration Thiamine HCl 100 mg 01/04/20 09:00 01/04/20 08:37 Thiamine PER TUBE 100 mg DAILY GIULIANA Administration - Exam General Appearance: awake alert Eye: PERRL, anicteric sclera ENT: no oropharyngeal lesions, moist mucosa Neck: supple, no JVD Heart: RRR, no murmur Respiratory: no wheezes, no rales Gastrointestinal: soft, non-tender, non-distended, normal bowel sounds Extremities: no cyanosis, no edema Neurological: cranial nerve grossly intact, no focal deficits Hosp A/P (1) Acute respiratory failure with hypoxia Code(s): J96.01 - ACUTE RESPIRATORY FAILURE WITH HYPOXIA Status: Resolved (2) substance overdose Status: Acute (3) SREE (acute kidney injury) Code(s): N17.9 - ACUTE KIDNEY FAILURE, UNSPECIFIED Status: Resolved (4) Aspiration pneumonia Code(s): J69.0 - PNEUMONITIS DUE TO INHALATION OF FOOD AND VOMIT Status: Acute Qualifiers: Aspiration pneumonia type: due to regurgitated food Laterality: bilateral (5) Rhabdomyolysis Code(s): M62.82 - RHABDOMYOLYSIS Status: Acute (6) Elevated LFTs Code(s): R79.89 - OTHER SPECIFIED ABNORMAL FINDINGS OF BLOOD CHEMISTRY Status : Acute (7) Alcohol intoxication Status: Resolved (8) Hypertension Code(s): I10 - ESSENTIAL (PRIMARY) HYPERTENSION Status: Chronic Qualifiers: Hypertension type: essential hypertension Qualified Code(s): I10 - Essential (primary) hypertension - Plan extubated 01/03/2020, is doing well on medical floor advance diet to heart healthy ambulate with PT as tolerated has persistent rhabdo with mild acidosis but renal function is normal, nephr consultation on augmentin, steroids, nebs, iv hydration uds was +ve for meth, pcp and alc levels of 211 on admission echo shows normal ef, no signs of lvh per report hemostable
[2020-01-04 13:21] LABS: Bilirubin Negative (Negative); Blood, Urine 2+ (Negative); Clarity Turbid (Clear); Glucose, Urine (Dipstick) Normal (Negative); Leukocyte 75 Leu/uL (Negative); Nitrite Negative (Negative); Protein, Urine (Dipstick) 10 mg/dL (Neg-Trace); Squamous Epithelial None Seen HPF (0-3); Urobilinogen Normal mg/dL (Less than 2); WBC/HPF 0-3 HPF (0-3)
[2020-01-04 13:22] LABS: Bacteria/HPF 1+ HPF (None Seen)
[2020-01-04 13:33] VITALS: BMI 27.6
[2020-01-04] MEDS ORDERED: Loperamide HCl 2 MG CAP PO PRN (15:42)
[2020-01-04] MEDS ORDERED: Potassium Chloride 20 MEQ TAB PO SCH (17:00)
[2020-01-04] MEDS: Sodium Bicarbonate 150 MEQ in Dextrose 5% in Water 1,000 ML IV SCH (20:03)
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
[2020-01-05 06:16] LABS: Band 5 % (5-11); Hemoglobin 10.8 g/dL (14.0-18.0); Lymphocytes 24 % (21-51); MDiff Complete? YES; Mean Corpuscular HGB CONC 32.7 g/dL (32.0-36.0); Mean Corpuscular Hemoglobin 28.2 pg (27.0-31.0); Mean Corpuscular Volume 86.4 fL (78.0-98.0); Mean Platelet Volume 8.6 fL (7.4-10.4); Monocytes 6 % (0-10); Neutrophil 65 % (42-75); Platelet Count 212 thou/uL (130-400); Platelet Morphology Comment Appears Adequate; RBC Distribution Width 11.9 % (11.5-14.5); Red Blood Cell (RBC) Count 3.81 mill/uL (4.70-6.10); White Blood Cell (WBC) Count 14.7 thou/uL (4.8-10.8)
[2020-01-05 06:22] LABS: ALT (SGPT) 219 U/L (8-55); AST (SGOT) 241 U/L (5-34); Albumin 2.9 g/dL (3.5-5.0); Alkaline Phosphatase 56 U/L (40-110); Anion Gap 8 mmol/L (10-20); BUN (Urea Nitrogen) 9 mg/dL (8.9-20.6); Bilirubin, Total 0.6 mg/dL (0.2-1.2); Calc. Creatinine Clearance 173 mL/min (70-130); Calcium 8.1 mg/dL (7.8-10.44); Carbon Dioxide 27 mmol/L (22-29); Chloride 105 mmol/L (98-107); Estimated GFR-MDRD Greater than 90; Globulin 2.4 g/dL (2.4-3.5); Glucose 110 mg/dL (70-105); Potassium 3.4 mmol/L (3.5-5.1); Protein, Total 5.3 g/dL (6.0-8.3); Sodium 137 mmol/L (136-145)
[2020-01-05] MEDS: Sodium Bicarbonate 150 MEQ in Dextrose 5% in Water 1,000 ML IV SCH ×3 (06:29→22:26)
[2020-01-05 06:34] LABS: CK (CPK) 7423 U/L (30-200)
[2020-01-05] MEDS: Thiamine 100 MG TAB PER TUBE SCH (08:19)
[2020-01-05] MEDS: Multivit, Therapeutic 1 TAB PER TUBE SCH (08:19)
[2020-01-05] MEDS: Amoxicillin/Potassium Clav 875 MG TAB PO SCH ×2 (08:19→20:21)
[2020-01-05] MEDS: methylPREDNISolone Sod Succ 40 MG VIAL IVP SCH (08:19)
[2020-01-05] MEDS: Folic Acid 1 MG TAB PER TUBE SCH (08:19)
[2020-01-05] MEDS ORDERED: Potassium Chloride 20 MEQ TAB PO SCH (08:45)
--- NOTE | 2020-01-05 10:34 | PRG ---
DATE OF SERVICE: 01/05/2020 SERVICE: Renal Medicine. SUBJECTIVE: Mr. Catalan is a 39-year-old black male, who was admitted initially for mental status change. His mentation has been improved. He has been taking recreational drugs. He was also noted to have rhabdomyolysis. He was found to have granular cast with this initial urine sediment. However, this was repeated and the granular cast resolved. He may have had a mild ATN at that time. We started him on isotonic bicarbonate yesterday. His renal function continues to remain stable and unchanged. No other complaints today. No chest pain or shortness of breath. OBJECTIVE: VITAL SIGNS: Blood pressure 120/82, heart rate 68, respiratory rate 20, temperature 98.2, pulse ox 100%. GENERAL: Noted to be awake, alert, supine, comfortable, not in distress. SKIN: Adequate turgor. HEENT: Pinkish conjunctivae. Anicteric sclerae. NECK: No neck mass. No carotid bruits. No JVD. CHEST: No deformities. LUNGS: Clear breath sounds. HEART: Normal sinus rhythm. No murmur. No gallops. No rubs. ABDOMEN: Globular, soft, nontender. No masses. EXTREMITIES: No edema. No deformities. MEDICATIONS: Medications of January 05, 2020, were reviewed. LABORATORY DATA: Laboratories of January 05, 2020; sodium 137, potassium 3.4, chloride 105, carbon dioxide 27, BUN 9, creatinine 0.78, glucose 110, calcium 8.1, AST 241, ALT 219. CK is now 7423, albumin 2.9. ASSESSMENT AND PLAN: 1. Acute kidney injury-finding of granular cast with initial urinalysis suggested acute tubular necrosis. This is probably a mild patchy ATN. His renal function is actually stable and almost within normal. He was started on isotonic bicarbonate due to the concomitant metabolic acidosis as well as the history of rhabdomyolysis. I will continue current management. From a Renal point of view, if the plan is to discharge him, he can go home any time. 2. Rhabdomyolysis. CPK slowly improving. 3. Mild hypokalemia. KCl 40 mEq 1 tablet was given today. Overall, agree with current management. Job ID: [id number]
--- NOTE | 2020-01-05 22:23 | PDOC.HOSPP ---
- Subjective Encounter Date: 01/05/20 Encounter Time: 11:00 Subjective: Patient seen and examined for OD. No new complaints. No overnight events - Objective Vital Signs & Weight: Vital Signs (12 hours) Temp Pulse Resp BP Pulse Ox 01/05/20 20:00 99 01/05/20 19:30 99 F 67 18 122/82 99 Weight Admit Weight 212 lb Weight 214 lb 11.684 oz Most Recent Monitor Data Heart Rate from ECG 78 NIBP 145/92 NIBP BP-Mean 109 Respiration from ECG 20 SpO2 91 I&O: 01/04/20 01/05/20 01/06/20 06:59 06:59 06:59 Intake Total 3005 4860 2543 Output Total 3560 4950 1800 Balance -555 -90 743 Result Diagrams: 01/05/20 05:35 01/05/20 05:35 Radiology Reviewed by me: Yes (CXR - improvement) Hospitalist ROS - Review of Systems Respiratory: denies: cough, dry, shortness of breath, hemoptysis, SOB with excertion, pleuritic pain, sputum, wheezing, other Cardiovascular: denies: chest pain, palpitations, orthopnea, paroxysmal noc. dyspnea, edema, light headedness, other - Medication Medications: Active Medications Generic Name Dose Route Start Last Admin Trade Name Freq PRN Reason Stop Dose Admin Acetaminophen 650 mg 12/31/19 15:08 01/04/20 10:05 Tylenol Elixir PO 650 mg Q6H PRN Administration Fever > 101 or Mild Pain Amoxicillin/Clavulanate Potassium 875 mg 01/03/20 21:00 01/05/20 20:21 Augmentin PO 875 mg Q12HR GIULIANA Administration Folic Acid 1 mg 01/04/20 09:00 01/05/20 08:19 Folvite PER TUBE 1 mg DAILY GIULIANA Administration Sodium Bicarbonate 150 meq/ 1,150 mls @ 100 mls/hr 01/04/20 17:30 01/05/20 14 :57 Dextrose/Water IV Not Given .[id number] GIULIANA Loperamide HCl 2 mg 01/04/20 15:42 01/04/20 16:52 Imodium PO 2 mg PRN PRN Administration Diarrhea/Loose Stools Multivitamins 1 tab 01/04/20 09:00 01/05/20 08:19 Theragran PER TUBE 1 tab DAILY GIULIANA Administration Pantoprazole Sodium 40 mg 01/04/20 09:00 01/05/20 08:19 Protonix PO 40 mg DAILY GIULIANA Administration Thiamine HCl 100 mg 01/04/20 09:00 01/05/20 08:19 Thiamine PER TUBE 100 mg DAILY GIULIANA Administration - Exam General Appearance: NAD Neck: supple, no JVD Heart: RRR, no gallops Respiratory: CTAB, no rales Gastrointestinal: soft, non-tender, non-distended, normal bowel sounds Extremities: no cyanosis, no clubbing Hosp A/P - Plan DVT proph w/SCDs 1. Acute hypoxic and hypercapnic respiratory failure secondary to drug overdose. 2. Sepsis due to aspiration pneumonia. 3. Metabolic acidosis/lactic acidosis. 4. Acute kidney injury. 5. Rhabdomyolysis secondary to drug abuse. 6. Alcohol intoxication. 7. Abnormal LFTs probably secondary to alcoholism. 8. Suspected suicidal attempt. 9. Elevated troponin secondary to rhabdomyolysis. 10. Abnormal TSH. PLAN: Cont IVF Cont PO Atbx Change Steroids to PO Await cultures AM labs including CK Cont other meds as above Bailey duffy
[2020-01-05] MEDS: Lidocaine 5% Patch TD SCH (22:24)
[2020-01-06] MEDS: Sodium Bicarbonate 150 MEQ in Dextrose 5% in Water 1,000 ML IV SCH ×3 (03:19→20:37)
[2020-01-06 05:59] LABS: Hemoglobin 11.4 g/dL (14.0-18.0); Mean Corpuscular HGB CONC 32.4 g/dL (32.0-36.0); Mean Corpuscular Hemoglobin 27.6 pg (27.0-31.0); Mean Corpuscular Volume 85.1 fL (78.0-98.0); Mean Platelet Volume 8.4 fL (7.4-10.4); Platelet Count 256 thou/uL (130-400); RBC Distribution Width 11.8 % (11.5-14.5); Red Blood Cell (RBC) Count 4.13 mill/uL (4.70-6.10); White Blood Cell (WBC) Count 15.3 thou/uL (4.8-10.8)
[2020-01-06 06:19] LABS: ALT (SGPT) 218 U/L (8-55); AST (SGOT) 153 U/L (5-34); Alkaline Phosphatase 59 U/L (40-110); Anion Gap 11 mmol/L (10-20); BUN (Urea Nitrogen) 10 mg/dL (8.9-20.6); Bilirubin, Total 0.6 mg/dL (0.2-1.2); CK (CPK) 3865 U/L (30-200); Calc. Creatinine Clearance 171 mL/min (70-130); Calcium 8.2 mg/dL (7.8-10.44); Carbon Dioxide 28 mmol/L (22-29); Chloride 102 mmol/L (98-107); Estimated GFR-MDRD Greater than 90; Globulin 2.5 g/dL (2.4-3.5); Glucose 111 mg/dL (70-105); Potassium 3.3 mmol/L (3.5-5.1); Protein, Total 5.5 g/dL (6.0-8.3); Sodium 138 mmol/L (136-145)
[2020-01-06] MEDS: predniSONE 20 MG TAB PO SCH (07:53)
[2020-01-06] MEDS: Amoxicillin/Potassium Clav 875 MG TAB PO SCH ×2 (07:53→20:36)
[2020-01-06] MEDS: Multivit, Therapeutic 1 TAB PER TUBE SCH (07:53)
[2020-01-06] MEDS: Thiamine 100 MG TAB PER TUBE SCH (07:53)
[2020-01-06] MEDS: Folic Acid 1 MG TAB PER TUBE SCH (07:53)
[2020-01-06 08:10] LABS: Band 1 % (5-11); Eosinophils 2 % (0-10); Lymphocytes 20 % (21-51); MDiff Complete? YES; Metamyelocyte 1 % (0-0); Monocytes 7 % (0-10); Neutrophil 69 % (42-75); RBC Morphology Normal
[2020-01-06] MEDS ORDERED: Potassium Chloride 20 MEQ TAB PO SCH (08:30)
--- NOTE | 2020-01-06 09:59 | PRG ---
DATE OF SERVICE: 01/06/2020 SUBJECTIVE: Mr. Catalan is a 39-year-old black male, who was seen for his rhabdomyolysis in mild acute tubular necrosis. He was found to have pigmented granular casts with his urinalysis. However, renal function has remained stable. Rhabdomyolysis is actually improving. The patient is unable to be discharged to a Rehab/[facility]iatric Facility at [facility] due to the elevated CPK. 1500 and is currently at 3865 today. No other complaints. No chest pain or shortness of breath. OBJECTIVE: VITAL SIGNS: Blood pressure 122/82, heart rate 67, respiratory rate 18, temperature 99, O2 saturation 98%. GENERAL: Awake, alert and comfortable, not in distress. SKIN: Adequate turgor. HEENT: He has pinkish conjunctivae. Anicteric sclerae. NECK: No neck mass. No carotid bruits. No JVD. CHEST: No deformities. LUNGS: Clear breath sounds. HEART: Normal sinus rhythm. No murmur. No gallops. No rubs. ABDOMEN: Globular, soft, nontender, no masses. EXTREMITIES: No edema, no deformities. MEDICATIONS: January 06, 2020, reviewed. LABORATORY DATA: January 06, 2020. Sodium 138, potassium 3.3, chloride 102, carbon dioxide 28, BUN 11 creatinine 0. BUN is 10, creatinine 0.79, AST 153, ALT 218, CPK is 3865, albumin 3.0. ASSESSMENT/PLAN: 1. Status post acute tubular necrosis/acute kidney injury-stabilizing renal function. No recurrence of this pigmented granular casts. Continue current IV hydration. Currently, on isotonic bicarbonate. 2. Rhabdomyolysis, clinically improving by serology as well by clinical exam. Overall, agree with current management. Job ID: [id number]
[2020-01-06] MEDS: Lidocaine Patch Removal 1 EACH TOP SCH (11:05)
--- NOTE | 2020-01-06 13:41 | PDOC.HOSPP ---
- Subjective Encounter Date: 01/06/20 Encounter Time: 10:00 Subjective: Patient seen and examined for OD/Rhabdo. No new complaints. No overnight events - Objective Vital Signs & Weight: Vital Signs (12 hours) Pulse Ox 01/06/20 08:00 98 Weight Admit Weight 212 lb Weight 214 lb 11.684 oz Most Recent Monitor Data Heart Rate from ECG 78 NIBP 145/92 NIBP BP-Mean 109 Respiration from ECG 20 SpO2 91 I&O: 01/05/20 01/06/20 01/07/20 06:59 06:59 06:59 Intake Total 4860 4203 360 Output Total 4950 3425 Balance -90 778 360 Result Diagrams: 01/06/20 05:18 01/06/20 05:18 Hospitalist ROS - Review of Systems Respiratory: denies: cough, dry, shortness of breath, hemoptysis, SOB with excertion, pleuritic pain, sputum, wheezing, other Cardiovascular: denies: chest pain, palpitations, orthopnea, paroxysmal noc. dyspnea, edema, light headedness, other - Medication Medications: Active Medications Generic Name Dose Route Start Last Admin Trade Name Freq PRN Reason Stop Dose Admin Acetaminophen 650 mg 12/31/19 15:08 01/04/20 10:05 Tylenol Elixir PO 650 mg Q6H PRN Administration Fever > 101 or Mild Pain Amoxicillin/Clavulanate Potassium 875 mg 01/03/20 21:00 01/06/20 07:53 Augmentin PO 875 mg Q12HR GIULIANA Administration Folic Acid 1 mg 01/04/20 09:00 01/06/20 07:53 Folvite PER TUBE 1 mg DAILY GIULIANA Administration Sodium Bicarbonate 150 meq/ 1,150 mls @ 100 mls/hr 01/04/20 17:30 01/06/20 11 :03 Dextrose/Water IV 1,150 mls .[id number] GIULIANA Administration Lidocaine 1 patch 01/05/20 23:00 01/05/20 22:24 Lidoderm 5% Patch TD 1 patch 2300 GIULIANA Administration Loperamide HCl 2 mg 01/04/20 15:42 01/04/20 16:52 Imodium PO 2 mg PRN PRN Administration Diarrhea/Loose Stools Miscellaneous Medication 1 each 01/06/20 11:00 01/06/20 11:05 Lidocaine Patch Removal TOP 1 each 1100 GIULIANA Administration Multivitamins 1 tab 01/04/20 09:00 01/06/20 07:53 Theragran PER TUBE 1 tab DAILY GIULIANA Administration Pantoprazole Sodium 40 mg 01/04/20 09:00 01/06/20 07:53 Protonix PO 40 mg DAILY GIULIANA Administration Prednisone 20 mg 01/06/20 08:00 01/06/20 07:53 Prednisone PO 20 mg QAM-WM GIULIANA Administration Sodium Chloride 10 ml 12/31/19 15:08 01/06/20 07:53 Flush - Normal Saline IVF 10 ml PRN PRN Administration Saline Flush Thiamine HCl 100 mg 01/04/20 09:00 01/06/20 07:53 Thiamine PER TUBE 100 mg DAILY GIULIANA Administration - Exam General Appearance: NAD Heart: RRR, no gallops Respiratory: CTAB, no rales Gastrointestinal: non-tender, non-distended, normal bowel sounds Extremities: no cyanosis, no clubbing Hosp A/P - Plan DVT proph w/SCDs 1. Acute hypoxic and hypercapnic respiratory failure secondary to drug overdose. 2. Sepsis due to aspiration pneumonia. 3. Metabolic acidosis/lactic acidosis. 4. Acute kidney injury. 5. Rhabdomyolysis secondary to drug abuse. 6. Alcohol intoxication. 7. Abnormal LFTs probably secondary to alcoholism. PLAN: Cont IVF with bicarb Cont PO Atbx for Aspiration Pneumonia Cont PO Steroids AM labs including CK Cont other meds as above Cont Sitter [facility] input appreciated DC to [facility] when accepted
[2020-01-06] MEDS: Potassium Chloride 20 MEQ TAB PO SCH (16:42)
[2020-01-06] MEDS: Lidocaine 5% Patch TD SCH (22:37)
[2020-01-07 05:48] LABS: Anion Gap 12 mmol/L (10-20); BUN (Urea Nitrogen) 11 mg/dL (8.9-20.6); CK (CPK) 2633 U/L (30-200); Calc. Creatinine Clearance 173 mL/min (70-130); Calcium 8.2 mg/dL (7.8-10.44); Carbon Dioxide 27 mmol/L (22-29); Chloride 101 mmol/L (98-107); Estimated GFR-MDRD Greater than 90; Glucose 111 mg/dL (70-105); Potassium 3.8 mmol/L (3.5-5.1); Sodium 136 mmol/L (136-145)
[2020-01-07] MEDS: predniSONE 20 MG TAB PO SCH (08:37)
[2020-01-07] MEDS: Potassium Chloride 20 MEQ TAB PO SCH ×2 (08:37→16:21)
[2020-01-07] MEDS: Folic Acid 1 MG TAB PER TUBE SCH (08:37)
[2020-01-07] MEDS: Multivit, Therapeutic 1 TAB PER TUBE SCH (08:37)
[2020-01-07] MEDS: Amoxicillin/Potassium Clav 875 MG TAB PO SCH (08:37)
[2020-01-07] MEDS: Thiamine 100 MG TAB PER TUBE SCH (08:37)
--- NOTE | 2020-01-07 11:12 | PDOC.HOSPP ---
- Subjective Encounter Date: 01/07/20 Encounter Time: 10:30 Subjective: Patient seen and examined for OD/SI. No new complaints. No overnight events - Objective Vital Signs & Weight: Vital Signs (12 hours) Temp Pulse Resp BP Pulse Ox 01/07/20 07:32 98.7 F 73 20 105/65 97 Weight Admit Weight 212 lb Weight 214 lb 11.684 oz Most Recent Monitor Data Heart Rate from ECG 78 NIBP 145/92 NIBP BP-Mean 109 Respiration from ECG 20 SpO2 91 I&O: 01/06/20 01/07/20 01/08/20 06:59 06:59 06:59 Intake Total 4203 2660 Output Total 3425 1500 Balance 778 1160 Result Diagrams: 01/06/20 05:18 01/07/20 05:17 Hospitalist ROS - Review of Systems Respiratory: denies: cough, dry, shortness of breath, hemoptysis, SOB with excertion, pleuritic pain, sputum, wheezing, other Cardiovascular: denies: chest pain, palpitations, orthopnea, paroxysmal noc. dyspnea, edema, light headedness, other Gastrointestinal: denies: nausea, vomiting, abdominal pain, diarrhea, constipation, melena, hematochezia, other - Medication Medications: Active Medications Generic Name Dose Route Start Last Admin Trade Name Freq PRN Reason Stop Dose Admin Acetaminophen 650 mg 12/31/19 15:08 01/04/20 10:05 Tylenol Elixir PO 650 mg Q6H PRN Administration Fever > 101 or Mild Pain Amoxicillin/Clavulanate Potassium 875 mg 01/03/20 21:00 01/07/20 08:37 Augmentin PO 875 mg Q12HR GIULIANA Administration Folic Acid 1 mg 01/04/20 09:00 01/07/20 08:37 Folvite PER TUBE 1 mg DAILY GIULIANA Administration Sodium Bicarbonate 150 meq/ 1,150 mls @ 100 mls/hr 01/04/20 17:30 01/06/20 20 :37 Dextrose/Water IV 1,150 mls .[id number] GIULIANA Administration Lidocaine 1 patch 01/05/20 23:00 01/06/20 22:37 Lidoderm 5% Patch TD 1 patch 2300 GIULIANA Administration Loperamide HCl 2 mg 01/04/20 15:42 01/04/20 16:52 Imodium PO 2 mg PRN PRN Administration Diarrhea/Loose Stools Miscellaneous Medication 1 each 01/06/20 11:00 01/06/20 11:05 Lidocaine Patch Removal TOP 1 each 1100 GIULIANA Administration Multivitamins 1 tab 01/04/20 09:00 01/07/20 08:37 Theragran PER TUBE 1 tab DAILY GIULIANA Administration Pantoprazole Sodium 40 mg 01/04/20 09:00 01/07/20 08:37 Protonix PO 40 mg DAILY GIULIANA Administration Potassium Chloride 20 meq 01/06/20 17:00 01/07/20 08:37 K-Dur PO 20 meq BID-WM GIULIANA Administration Prednisone 20 mg 01/06/20 08:00 01/07/20 08:37 Prednisone PO 20 mg QAM-WM GIULIANA Administration Sodium Chloride 10 ml 12/31/19 15:08 01/06/20 07:53 Flush - Normal Saline IVF 10 ml PRN PRN Administration Saline Flush Thiamine HCl 100 mg 01/04/20 09:00 01/07/20 08:37 Thiamine PER TUBE 100 mg DAILY GIULIANA Administration - Exam General Appearance: NAD Heart: RRR, no gallops Respiratory: no wheezes, no ronchi Gastrointestinal: non-tender, non-distended, normal bowel sounds Extremities: no cyanosis, no clubbing Neurological: no new deficit Hosp A/P - Plan DVT proph w/SCDs 1. Acute hypoxic and hypercapnic respiratory failure secondary to drug overdose. 2. Sepsis due to aspiration pneumonia - completed Atbx 3. Metabolic acidosis/lactic acidosis. 4. Acute kidney injury. 5. Rhabdomyolysis secondary to drug abuse. 6. Alcohol intoxication. 7. Abnormal LFTs. PLAN: Cont IVF with bicarb DC Atbx and Steroids Check AM labs including CK Cont other meds as above Cont Sitter DC to [facility] when accepted
[2020-01-07] MEDS: Lidocaine Patch Removal 1 EACH TOP SCH (11:49)
[2020-01-07] MEDS: Sodium Bicarbonate 150 MEQ in Dextrose 5% in Water 1,000 ML IV SCH ×2 (12:58→21:05)
[2020-01-07] MEDS ORDERED: Acetaminophen 325 MG TAB PO PRN (16:10)
[2020-01-07] MEDS: traMADol HCl 50 MG TAB PO PRN ×2 (16:21→21:03)
[2020-01-07] MEDS: Lidocaine 5% Patch TD SCH (23:27)
[2020-01-08 06:07] LABS: Anion Gap 13 mmol/L (10-20); BUN (Urea Nitrogen) 10 mg/dL (8.9-20.6); CK (CPK) 2020 U/L (30-200); Calc. Creatinine Clearance 173 mL/min (70-130); Calcium 8.3 mg/dL (7.8-10.44); Carbon Dioxide 28 mmol/L (22-29); Chloride 98 mmol/L (98-107); Estimated GFR-MDRD Greater than 90; Glucose 104 mg/dL (70-105); Sodium 135 mmol/L (136-145)
[2020-01-08] MEDS: Folic Acid 1 MG TAB PER TUBE SCH (08:20)
[2020-01-08] MEDS: Thiamine 100 MG TAB PER TUBE SCH (08:20)
[2020-01-08] MEDS: Multivit, Therapeutic 1 TAB PER TUBE SCH (08:20)
[2020-01-08] MEDS: Sodium Bicarbonate 150 MEQ in Dextrose 5% in Water 1,000 ML IV SCH (08:20)
[2020-01-08] MEDS: Potassium Chloride 20 MEQ TAB PO SCH ×2 (08:20→17:56)
[2020-01-08 11:36] VITALS: BP 115/71; TEMP 98.9
[2020-01-08] MEDS: Lidocaine Patch Removal 1 EACH TOP SCH (11:40)
--- NOTE | 2020-01-08 13:46 | PDOC.HOSPP ---
- Subjective Encounter Date: 01/08/20 Encounter Time: 12:00 Subjective: Patient seen and examined for OD/resp failure. No new complaints. No overnight events - Objective Vital Signs & Weight: Vital Signs (12 hours) Temp Pulse Resp BP Pulse Ox 01/08/20 11:35 98.9 F 68 16 115/71 98 01/08/20 08:00 97 01/08/20 07:46 98.5 F 77 20 115/67 97 Weight Admit Weight 212 lb Weight 214 lb 11.684 oz Most Recent Monitor Data Heart Rate from ECG 78 NIBP 145/92 NIBP BP-Mean 109 Respiration from ECG 20 SpO2 91 I&O: 01/07/20 01/08/20 01/09/20 06:59 06:59 06:59 Intake Total 2660 1850 Output Total 1500 Balance 1160 1850 Result Diagrams: 01/06/20 05:18 01/08/20 05:32 Additional Labs: Laboratory Tests 01/01/20 01/01/20 01/07/20 07:54 07:54 05:17 Lactic Acid 3.0 H AST 409 H ALT 149 H Creatine Kinase 71180 H 2633 H 01/08/20 05:32 Lactic Acid AST ALT Creatine Kinase 2020 H Hospitalist ROS - Review of Systems Respiratory: denies: cough, dry, shortness of breath, hemoptysis, SOB with excertion, pleuritic pain, sputum, wheezing, other Cardiovascular: denies: chest pain, palpitations, orthopnea, paroxysmal noc. dyspnea, edema, light headedness, other - Medication Medications: Active Medications Generic Name Dose Route Start Last Admin Trade Name Freq PRN Reason Stop Dose Admin Acetaminophen 650 mg 12/31/19 15:08 01/04/20 10:05 Tylenol Elixir PO 650 mg Q6H PRN Administration Fever > 101 or Mild Pain Folic Acid 1 mg 01/04/20 09:00 01/08/20 08:20 Folvite PER TUBE 1 mg DAILY GIULIANA Administration Sodium Bicarbonate 150 meq/ 1,150 mls @ 100 mls/hr 01/04/20 17:30 01/08/20 08 :20 Dextrose/Water IV 1,150 mls .[id number] GIULIANA Administration Lidocaine 1 patch 01/05/20 23:00 01/07/20 23:27 Lidoderm 5% Patch TD 1 patch 2300 GIULIANA Administration Loperamide HCl 2 mg 01/04/20 15:42 01/04/20 16:52 Imodium PO 2 mg PRN PRN Administration Diarrhea/Loose Stools Miscellaneous Medication 1 each 01/06/20 11:00 01/07/20 11:49 Lidocaine Patch Removal TOP 1 each 1100 GIULIANA Administration Multivitamins 1 tab 01/04/20 09:00 01/08/20 08:20 Theragran PER TUBE 1 tab DAILY GIULIANA Administration Pantoprazole Sodium 40 mg 01/04/20 09:00 01/08/20 08:20 Protonix PO 40 mg DAILY GIULIANA Administration Potassium Chloride 20 meq 01/06/20 17:00 01/08/20 08:20 K-Dur PO 20 meq BID-WM GIULIANA Administration Sodium Chloride 10 ml 12/31/19 15:08 01/06/20 07:53 Flush - Normal Saline IVF 10 ml PRN PRN Administration Saline Flush Thiamine HCl 100 mg 01/04/20 09:00 01/08/20 08:20 Thiamine PER TUBE 100 mg DAILY GIULIANA Administration Tramadol HCl 50 mg 01/07/20 16:11 01/07/20 21:03 Ultram PO 50 mg Q4H PRN Administration Moderate Pain (4-6) - Exam General Appearance: NAD Heart: RRR, no gallops Respiratory: no wheezes, no ronchi Gastrointestinal: non-tender, non-distended, normal bowel sounds Extremities: no cyanosis, no clubbing Neurological: no new deficit Hosp A/P - Plan DVT proph w/SCDs 1. Acute hypoxic and hypercapnic respiratory failure secondary to drug overdose. 2. Sepsis due to aspiration pneumonia - completed Atbx 3. Metabolic acidosis/lactic acidosis. 4. Acute kidney injury. 5. Rhabdomyolysis secondary to drug abuse. 6. Alcohol intoxication. 7. Abnormal LFTs. PLAN: Cont IVF Cont other meds as above check CK in AM Cont [facility] to [facility] when accepted
--- NOTE | 2020-01-08 17:14 | DIS ---
DATE OF ADMISSION: 12/31/2019 DATE OF DISCHARGE: 01/08/2020 DISCHARGE DISPOSITION: Home. FOLLOWUP: 1. Follow up with primary care physician at [facility] in 1 week. 2. Follow up with [facility]. 3. Follow up with Nephrology as outpatient. 4. Repeat CMP and CK after 1 week is recommended. Primary care physician advised to follow. ALLERGIES: THE PATIENT IS ALLERGIC TO IODINE. DISCHARGE MEDICATIONS: Thiamine, multivitamin, and folic acid. He was advised to resume lisinopril. BRIEF HOSPITAL COURSE: The patient is a 39-year-old male with hypertension, asthma, and obstructive sleep apnea, presented to the emergency room on 31 Dec 2019, with altered mentation. He drank multiple liquor bottles and consumed several medications. He was intubated for airway protection. He was also found to have aspiration pneumonia. Please refer to the history and physical for further details. The patient was admitted to the intensive care unit with a diagnosis of acute hypoxic respiratory failure secondary to drug overdose. His urine drug screen was positive for PCP and methamphetamine. His alcohol level was 211. His WBC count was around 16,000 with left shift. His x-ray showed aspiration pneumonia. Later on, he was extubated and transferred to the regular floor. He was also found to have rhabdomyolysis with maximum CK of 28,500. His CK has improved to 2000. Two days ago, he was evaluated by [facility]. [facility] recommended inpatient psych facility. However, today he was re-evaluated by [facility]. A safety plan has been created. The patient denies any suicidal ideation at this time. A Crisis Team from [facility] will follow up the patient on a daily basis. The family is also involved at this time. The patient and the family understand the above plan of care. FINAL DIAGNOSES: 1. Acute hypoxic and hypercapnic respiratory failure secondary to drug overdose. 2. Sepsis secondary to aspiration pneumonia, completed antibiotics. 3. Metabolic acidosis/lactic acidosis. 4. Acute kidney injury. 5. Rhabdomyolysis secondary to drug abuse. 6. Alcohol intoxication. 7. Abnormal LFTs probably secondary to rhabdomyolysis. 8. PCP and amphetamine abuse. 9. Hypertension. 10. Obstructive sleep apnea, not on CPAP. An outpatient sleep study was recommended. 11. Mild intermittent asthma. 12. Diverticulosis. 13. The patient understands the above plan of care. Job ID: [id number]
--- NOTE | 2020-01-09 23:50 | PQF ---
Kevon Catalan MALIK MD [id number] CLINICAL DOCUMENTATION CLARIFICATION FORM: POST DISCHARGE Addendum to original discharge summary date: ____ Late entry note date: __ DATE: 01/09/2020 ATTN: LINO ARZATE MD Please exercise your independent, professional judgment in responding to the clarification form. Clinical indicators are provided on the bottom of this form for your review Kindly clarify the diagnosis occasioning for IP admission as: [ x ] Drug overdose [ x] Sepsis with resp failure requiring mechanical ventilation [ ] Other diagnosis [ ] Unable to determine Coding guidelines require hospitals to identify whether a diagnosis was occasioning on admission (DOA) or not. To accurately assign the appropriate DOA indicator, this information must be clearly documented within the medical record. CLINICAL INDICATORS - SIGNS / SYMPTOMS / LABS - Chief compliant: Altered mentation- H&P, 12/30, DS, 01/07, LINO ARZATE MD - Sepsis suspected due to aspiration pneumonia-H&P, 12/30, DS, 01/07, LINO ARZATE MD - Acute hypoxic and hypercapnic respiratory failure sec to drug overdose-H&P, , DS, 01/07, LINO ARZATE MD - patient seen and examined for resp failure/OD, on [facility] PN, 12/31, LINO ARZATE MD - Family reported that he drank multiple liquor bottles as well as consumed Xanax with Codine-H&P, 12/30, DS, 01/07, LINO ARZATE MD - Rhabdomyolysis due to drug overdose-H&P, 12/30, DS, 01/07, LINO ARZATE MD - Urine drug screen showed PCP and methamphetamine-H&P, 12/30, DS, 01/07, LINO ARZATE MD - Temp: 98.6, Pulse:104, WBC: 23.9-H&P, 12/30, DS, 01/07, LINO ARZATE MD RISK FACTORS: - Acute hypoxic and hypercapnic respiratory failure- DS, 01/07, LINO ARZATE MD - Aspiration pneumonia- DS, 01/07, LINO ARZATE MD - Metabolic Acidosis-H&P, 12/30, DS, 01/07, LINO ARZATE MD TREATMENT: - IV fluids-H&P, 12/30, DS, 01/07, LINO ARZATE MD - Rocephin.IV- 12/30 - Mechanical ventilation-12/30 (This form is maintained as a part of the permanent medical record) 2014 [employer]. All Rights Reserved Martha [email or web address]
--- NOTE | 2020-01-12 16:56 | EKG ---
Test Reason : Blood Pressure : / mmHG Vent. Rate : 106 BPM Atrial Rate : 106 BPM P-R Int : 140 ms QRS Dur : 068 ms QT Int : 336 ms P-R-T Axes : 062 067 048 degrees QTc Int : 446 ms Sinus tachycardia No STEMI Otherwise normal ECG Confirmed by SHAGUFTA Ignacio, FEMI ([id number]), research editor SOILA RICHTER ([id number]) on 01/12/2020 4:56:31 PM Referred By: Confirmed By:FEMI EAGLE M.D.
== END 2020-01-08 17:32 | disposition home or self-care (01) | DRG 871 ==
LOC: ERS 12:27 → CCU 12:35 → T4-B 01-03 14:10
PROVIDERS: ADMIT Internal Medicine; ATTEND Internal Medicine
PROC: 0BH17EZ Insertion of Endotracheal Airway into Trachea, Via Natural or Artificial Opening (ICD-10-PCS; principal; 2019-12-31)
PROC: 5A1945Z Respiratory Ventilation, 24-96 Consecutive Hours (ICD-10-PCS; 2019-12-31)
DX: A41.9 Sepsis, unspecified organism (principal); J96.01 Acute respiratory failure with hypoxia; J69.0 Pneumonitis due to inhalation of food and vomit; J96.02 Acute respiratory failure with hypercapnia; N17.0 Acute kidney failure with tubular necrosis; M62.82 Rhabdomyolysis; E87.2 Acidosis; T43.621A Poisoning by amphetamines, accidental (unintentional), initial encounter; F10.129 Alcohol abuse with intoxication, unspecified; F15.10 Other stimulant abuse, uncomplicated; E87.6 Hypokalemia; G47.33 Obstructive sleep apnea (adult) (pediatric); J45.20 Mild intermittent asthma, uncomplicated; K57.90 Diverticulosis of intestine, part unspecified, without perforation or abscess without bleeding; I10 Essential (primary) hypertension; E66.9 Obesity, unspecified; F12.10 Cannabis abuse, uncomplicated; F17.210 Nicotine dependence, cigarettes, uncomplicated; Z91.041 Radiographic dye allergy status; Z91.010 Allergy to peanuts; I25.2 Old myocardial infarction; Z88.8 Allergy status to other drugs, medicaments and biological substances; Z91.018 Allergy to other foods; Z68.27 Body mass index [BMI] 27.0-27.9, adult
CPT/HCPCS: 36415; 51702; 70450; 71045; 80048; 80053; 80306; 80307; 81001; 81003; 81015; 82550; 82553; 82805; 83605; 83690; 83735; 83930; 84100; 84439; 84443; 84484; 85007; 85025; 85027; 87040; 87086; 93005; 93306; 94002; 94003; 96361; 96365; 96366; 96367; 96375; 96376; 99292; J0456; J0696; J2060; J2250; J2270; J2543; J2704; J2920; J3010; J3411; J3490; J7030; J7070; J7512; S0028

== ENCOUNTER 2021-01-18 13:48 | Emergency (ER) | payer SELFPAY ==
[2021-01-18] MEDS ORDERED: levETIRAcetam in NS 1,500 MG in Premix Bag 1 BAG IVPB SCH (14:45)
== END 2021-01-18 18:55 | disposition home or self-care (01) ==
LOC: ERS 13:48
DX: G40.409 Other generalized epilepsy and epileptic syndromes, not intractable, without status epilepticus (principal); F19.10 Other psychoactive substance abuse, uncomplicated; I10 Essential (primary) hypertension; I25.2 Old myocardial infarction; G47.30 Sleep apnea, unspecified; Z79.82 Long term (current) use of aspirin; Z79.899 Other long term (current) drug therapy
CPT/HCPCS: 96365; J1953

== ENCOUNTER 2021-02-05 05:33 | Observation (INO) | payer MEDICAID, SELFPAY ==
[2021-02-05 05:53] LABS: #Basophils 0.1 thou/uL (0.0-0.2); #Eosinphils 0.2 thou/uL (0.0-0.7); #Monocytes 0.9 thou/uL (0.11-0.59); #Neutrophils 3.5 thou/uL (1.40-6.50); %Eosinophils 3.4 % (0.0-10.0); %Lymphocytes 29.8 % (21.0-51.0); %Monocytes 13.1 % (0.0-10.0); %Neutrophils 52.7 % (42.0-75.0); Hemoglobin 13.7 g/dL (14.0-18.0); Mean Corpuscular HGB CONC 34.8 g/dL (32.0-36.0); Mean Corpuscular Hemoglobin 29.2 pg (27.0-31.0); Mean Platelet Volume 7.6 fL (7.4-10.4); Platelet Count 339 thou/uL (130-400); RBC Distribution Width 12.2 % (11.5-14.5); White Blood Cell (WBC) Count 6.7 thou/uL (4.8-10.8)
[2021-02-05 06:05] LABS: INR-International Normal Ratio 0.9; PTT 28.6 sec (22.9-36.1); Prothrombin Time 12.3 sec (12.0-14.7)
[2021-02-05 06:06] LABS: ALT (SGPT) 16 U/L (8-55); AST (SGOT) 15 U/L (5-34); Albumin 4.3 g/dL (3.5-5.0); Alkaline Phosphatase 101 U/L (40-110); Anion Gap 11 mmol/L (10-20); BUN (Urea Nitrogen) 6 mg/dL (8.9-20.6); Bilirubin, Total 0.3 mg/dL (0.2-1.2); CK (CPK) 225 U/L (30-200); Calc. Creatinine Clearance 0 mL/min (70-130); Calcium 8.9 mg/dL (7.8-10.44); Carbon Dioxide 24 mmol/L (22-29); Chloride 107 mmol/L (98-107); Globulin 2.9 g/dL (2.4-3.5); Glucose 129 mg/dL (70-105); Potassium 4.1 mmol/L (3.5-5.1); Protein, Total 7.2 g/dL (6.0-8.3); Sodium 138 mmol/L (136-145)
[2021-02-05] MEDS ORDERED: Aspirin Chewable 81 MG TAB ONE (06:30)
[2021-02-05] MEDS ORDERED: Acetaminophen 500 MG TAB ONE (06:30)
[2021-02-05] MEDS ORDERED: diphenhydrAMINE 50 MG/ML VIAL ONE (06:30)
[2021-02-05] MEDS ORDERED: Metoclopramide HCl 10 MG/2 ML VIAL ONE (06:30)
[2021-02-05] MEDS ORDERED: hydrALAZINE 20 MG/ML VIAL SLOW IVP PRN (07:50)
[2021-02-05] MEDS ORDERED: Senokot S 8.6-50 MG TAB PO PRN (07:50)
[2021-02-05] MEDS ORDERED: Ondansetron PF 4 MG/2 ML Vial IVP PRN (07:50)
[2021-02-05] MEDS ORDERED: Acetaminophen 325 MG TAB PO PRN (07:50)
[2021-02-05] MEDS ORDERED: Sodium Chloride 0.9% 1,000 ML IV SCH (08:00)
[2021-02-05] MEDS ORDERED: Iopamidol-370 76% 500 ML 1 ML ONE (08:52)
[2021-02-05 09:23] LABS: Troponin I Less than 0.010 ng/mL (< 0.028)
[2021-02-05 12:46] VITALS: BMI 35.2
[2021-02-05] MEDS: Multivit, Therapeutic 1 TAB PER TUBE SCH (13:22)
[2021-02-05] MEDS: Folic Acid 1 MG TAB PO SCH (13:22)
[2021-02-05] MEDS: Enoxaparin Sodium 40 MG/0.4 ML SYRINGE SC SCH (13:22)
[2021-02-05] MEDS: Thiamine 100 MG TAB PO SCH (13:23)
[2021-02-05 13:42] LABS: Troponin I Less than 0.010 ng/mL (< 0.028)
[2021-02-05 14:49] LABS: SARS-CoV-2 PCR by NAA Not Detected (NotDetected)
[2021-02-05] MEDS ORDERED: Clopidogrel Bisulfate 75 MG TAB PO SCH (15:30)
[2021-02-05 19:23] LABS: Amphetamine Not Detected (NotDetected); Barbiturates Screen Not Detected (NotDetected); Benzodiazepine Screen Not Detected (NotDetected); Cocaine Metabolite Screen Not Detected (NotDetected); Medtox Control Line Valid? VALID (VALID); Medtox Reader # READER 4; Methadone Not Detected (NotDetected); Methamphetamine Not Detected (NotDetected); Opiate Screen Not Detected (NotDetected); Oxycodone Screen Not Detected (NotDetected); Phencyclidine (PCP) Not Detected (NotDetected); THC/Cannabinoid Screen Detected (NotDetected); Tricyclic Screen Not Detected (NotDetected)
[2021-02-05 20:25] LABS: INR-International Normal Ratio 0.9; PTT 29.4 sec (22.9-36.1); Prothrombin Time 12.4 sec (12.0-14.7)
[2021-02-05 20:26] LABS: D-Dimer Test 0.45 *mcg/mL (0.27-0.43)
[2021-02-05] MEDS ORDERED: Atorvastatin Calcium 40 MG TAB PO SCH ×2 (21:00)
[2021-02-06 05:45] LABS: #Basophils 0.1 thou/uL (0.0-0.2); #Eosinphils 0.3 thou/uL (0.0-0.7); #Lymphocytes 1.9 thou/uL (1.20-3.40); #Monocytes 0.7 thou/uL (0.11-0.59); #Neutrophils 4.7 thou/uL (1.40-6.50); %Basophils 0.8 % (0.0-1.0); %Eosinophils 3.3 % (0.0-10.0); %Lymphocytes 25.3 % (21.0-51.0); %Monocytes 8.9 % (0.0-10.0); %Neutrophils 61.6 % (42.0-75.0); Hemoglobin 13.8 g/dL (14.0-18.0); Mean Corpuscular HGB CONC 32.3 g/dL (32.0-36.0); Mean Corpuscular Hemoglobin 27.4 pg (27.0-31.0); Mean Corpuscular Volume 84.9 fL (78.0-98.0); Mean Platelet Volume 7.9 fL (7.4-10.4); Platelet Count 340 thou/uL (130-400); RBC Distribution Width 12.3 % (11.5-14.5); Red Blood Cell (RBC) Count 5.03 mill/uL (4.70-6.10); White Blood Cell (WBC) Count 7.6 thou/uL (4.8-10.8)
[2021-02-06 05:52] LABS: Hemoglobin A1c 4.8 % (4.0-6.0)
[2021-02-06 06:08] LABS: ALT (SGPT) 15 U/L (8-55); AST (SGOT) 13 U/L (5-34); Albumin 4.3 g/dL (3.5-5.0); Alkaline Phosphatase 77 U/L (40-110); Anion Gap 10 mmol/L (10-20); BUN (Urea Nitrogen) 9 mg/dL (8.9-20.6); Bilirubin, Total 0.5 mg/dL (0.2-1.2); Calc. Creatinine Clearance 118 mL/min (70-130); Calcium 9.1 mg/dL (7.8-10.44); Carbon Dioxide 29 mmol/L (22-29); Cardiac Risk 4.8 (Less than 4.5); Chloride 101 mmol/L (98-107); Cholesterol 176 mg/dl (< 200 Desired); Globulin 2.9 g/dL (2.4-3.5); Glucose 110 mg/dL (70-105); HDL Cholesterol 37 mg/dL (>60 Neg Risk); LDL Cholesterol, Calculated 101 mg/dL; Protein, Total 7.2 g/dL (6.0-8.3); Sodium 136 mmol/L (136-145); Triglycerides 191 mg/dL (Less than 150)
[2021-02-06] MEDS: Thiamine 100 MG TAB PO SCH (08:56)
[2021-02-06] MEDS: Enoxaparin Sodium 40 MG/0.4 ML SYRINGE SC SCH (08:56)
[2021-02-06] MEDS: Folic Acid 1 MG TAB PO SCH (08:56)
[2021-02-06] MEDS: Multivit, Therapeutic 1 TAB PER TUBE SCH (08:56)
[2021-02-06] MEDS ORDERED: lamoTRIgine 100 MG TAB PO SCH (09:00)
[2021-02-06] MEDS ORDERED: Aspirin 81 mg Enteric Coated Tablet PO SCH (09:00)
[2021-02-06] MEDS ORDERED: Clopidogrel Bisulfate 75 MG TAB PO SCH (09:00)
[2021-02-06 12:38] LABS: Cardiolipin IgA Ab 1.5 APL-U/mL (<14 Negative); Cardiolipin IgG Ab 0.9 GPL-U/mL (<10 Negative); Cardiolipin IgM Ab 3.9 MPL-U/mL (<10 Negative); EliA APS New Method **** NEW METHOD ****
[2021-02-06 13:40] LABS: Protein C Activity 99 % (78-152)
[2021-02-06 13:41] LABS: Factor VIII Test 111.2 % ACTIVE (56-157)
[2021-02-06 15:39] VITALS: BP 134/85; TEMP 98.1
[2021-02-12 14:21] LABS: HEX PHOS LA Tube 1 39.4 SEC
[2021-02-13 18:09] LABS: Activated Protein C Resistance 2.6 ratio (.)
== END 2021-02-06 16:00 | disposition home or self-care (01) ==
LOC: ERS 05:33 → SUATTDRO 05:33 → INTOOBSV 07:05 → ERHOLD 07:05 → 2SE 12:02
PROVIDERS: ADMIT Internal Medicine; ATTEND Internal Medicine
DX: R07.9 Chest pain, unspecified (principal); R53.1 Weakness; R20.0 Anesthesia of skin; I10 Essential (primary) hypertension; E78.5 Hyperlipidemia, unspecified; I25.10 Atherosclerotic heart disease of native coronary artery without angina pectoris; F14.11 Cocaine abuse, in remission; F17.210 Nicotine dependence, cigarettes, uncomplicated; I25.2 Old myocardial infarction; G47.30 Sleep apnea, unspecified; J45.909 Unspecified asthma, uncomplicated; F17.290 Nicotine dependence, other tobacco product, uncomplicated; Z86.73 Personal history of transient ischemic attack (TIA), and cerebral infarction without residual deficits; Z79.82 Long term (current) use of aspirin; Z79.899 Other long term (current) drug therapy; Z91.010 Allergy to peanuts; Z91.018 Allergy to other foods; Z91.041 Radiographic dye allergy status; Z20.822 Contact with and (suspected) exposure to COVID-19
CPT/HCPCS: 36415; 36416; 70450; 70496; 70498; 70551; 80053; 80061; 80306; 82550; 83036; 83090; 84484; 85025; 85240; 85300; 85303; 85305; 85307; 85379; 85598; 85610; 85730; 86147; 93005; 93306; 96365; 96372; 96375; G0378; J1200; J1650; J2765; Q9967; U0003; U0005

== ENCOUNTER 2022-02-22 18:55 | Inpatient (IN) | payer BC ==
[2022-02-22 19:35] LABS: ALT (SGPT) 11 U/L (8-55); AST (SGOT) 12 U/L (5-34); Alkaline Phosphatase 58 U/L (40-110); Anion Gap 15 mmol/L (10-20); BUN (Urea Nitrogen) 16 mg/dL (8.9-20.6); Bilirubin, Total 0.3 mg/dL (0.2-1.2); CK (CPK) 142 U/L (30-200); Calc. Creatinine Clearance 0 mL/min (70-130); Calcium 8.7 mg/dL (7.8-10.44); Carbon Dioxide 25 mmol/L (22-29); Chloride 101 mmol/L (98-107); Globulin 2.6 g/dL (2.4-3.5); Glucose 142 mg/dL (70-105); Potassium 3.8 mmol/L (3.5-5.1); Protein, Total 6.6 g/dL (6.0-8.3); Sodium 137 mmol/L (136-145)
[2022-02-22 19:37] LABS: #Eosinphils 0.3 thou/uL (0.0-0.7); #Lymphocytes 2.6 thou/uL (1.20-3.40); #Monocytes 0.6 thou/uL (0.11-0.59); #Neutrophils 4.5 thou/uL (1.40-6.50); %Basophils 0.3 % (0.0-1.0); %Eosinophils 4.3 % (0.0-10.0); %Lymphocytes 31.9 % (21.0-51.0); %Monocytes 7.8 % (0.0-10.0); %Neutrophils 55.7 % (42.0-75.0); Hemoglobin 12.9 g/dL (14.0-18.0); Mean Corpuscular HGB CONC 33.3 g/dL (32.0-36.0); Mean Platelet Volume 7.1 fL (7.4-10.4); Platelet Count 282 thou/uL (130-400); Red Blood Cell (RBC) Count 4.31 mill/uL (4.70-6.10)
[2022-02-22 19:45] LABS: INR-International Normal Ratio 1.1; PTT 31.2 sec (22.9-36.1)
[2022-02-22] MEDS ORDERED: Aspirin 325 MG TAB ONE (20:19)
[2022-02-23 03:41] LABS: Amphetamine Not Detected (NotDetected); Barbiturates Screen Not Detected (NotDetected); Benzodiazepine Screen Detected (NotDetected); Cocaine Metabolite Screen Not Detected (NotDetected); Methadone Not Detected (NotDetected); Methamphetamine Not Detected (NotDetected); Opiate Screen Not Detected (NotDetected); Oxycodone Screen Not Detected (NotDetected); Phencyclidine (PCP) Not Detected (NotDetected); THC/Cannabinoid Screen Not Detected (NotDetected); Tricyclic Screen Not Detected (NotDetected)
[2022-02-23] MEDS: Lorazepam 2 MG/ML VIAL SLOW IVP PRN ×3 (05:21→22:58)
[2022-02-23] MEDS ORDERED: levETIRAcetam 500 MG/5 ML VIAL SLOW IVP SCH (05:45)
[2022-02-23] MEDS: lamoTRIgine 100 MG TAB PO SCH ×2 (09:04→21:04)
[2022-02-23] MEDS: DULoxetine 30 MG CAP PO SCH (09:04)
[2022-02-23] MEDS: Lisinopril 20 MG TAB PO SCH ×2 (09:05→21:03)
[2022-02-23] MEDS: Aspirin Chewable 81 MG TAB PO SCH (09:05)
[2022-02-23] MEDS: Divalproex Sodium DR 500 MG TAB PO SCH ×3 (09:06→21:04)
[2022-02-23] MEDS ORDERED: Acetaminophen 325 MG TAB PO PRN (11:38)
[2022-02-23] MEDS: HYDROcodone/Acetaminophen 5/325 mg Tablet PO PRN ×2 (14:06→21:06)
[2022-02-23] MEDS: levETIRAcetam 500 MG/5 ML VIAL SLOW IVP SCH (16:50)
[2022-02-23] MEDS: Atorvastatin Calcium 20 MG TAB PO SCH (21:03)
[2022-02-24] MEDS: Lorazepam 2 MG/ML VIAL SLOW IVP PRN ×4 (02:43→22:56)
[2022-02-24 05:03] LABS: #Eosinphils 0.4 thou/uL (0.0-0.7); #Monocytes 0.7 thou/uL (0.11-0.59); #Neutrophils 4.8 thou/uL (1.40-6.50); %Basophils 0.5 % (0.0-1.0); %Eosinophils 4.7 % (0.0-10.0); %Lymphocytes 33.5 % (21.0-51.0); %Monocytes 7.7 % (0.0-10.0); %Neutrophils 53.7 % (42.0-75.0); Hemoglobin 12.8 g/dL (14.0-18.0); Mean Corpuscular HGB CONC 33.6 g/dL (32.0-36.0); Mean Corpuscular Hemoglobin 30.1 pg (27.0-31.0); Mean Corpuscular Volume 89.6 fL (78.0-98.0); Mean Platelet Volume 7.2 fL (7.4-10.4); Platelet Count 291 thou/uL (130-400); RBC Distribution Width 12.2 % (11.5-14.5); Red Blood Cell (RBC) Count 4.27 mill/uL (4.70-6.10); White Blood Cell (WBC) Count 8.9 thou/uL (4.8-10.8)
[2022-02-24 05:30] LABS: ALT (SGPT) 10 U/L (8-55); AST (SGOT) 11 U/L (5-34); Albumin 3.6 g/dL (3.5-5.0); Alkaline Phosphatase 80 U/L (40-110); Anion Gap 13 mmol/L (10-20); BUN (Urea Nitrogen) 19 mg/dL (8.9-20.6); Bilirubin, Total 0.2 mg/dL (0.2-1.2); Calc. Creatinine Clearance 134 mL/min (70-130); Calcium 8.5 mg/dL (7.8-10.44); Carbon Dioxide 28 mmol/L (22-29); Cardiac Risk 4.7 (Less than 4.5); Chloride 102 mmol/L (98-107); Cholesterol 151 mg/dl (< 200 Desired); Globulin 2.7 g/dL (2.4-3.5); Glucose 129 mg/dL (70-105); HDL Cholesterol 32 mg/dL (>60 Neg Risk); LDL Cholesterol, Calculated 70 mg/dL; Magnesium 2.1 mg/dL (1.6-2.6); Protein, Total 6.3 g/dL (6.0-8.3); Sodium 139 mmol/L (136-145); Triglycerides 245 mg/dL (Less than 150)
[2022-02-24] MEDS: Divalproex Sodium DR 500 MG TAB PO SCH ×2 (09:34→21:14)
[2022-02-24] MEDS: Aspirin Chewable 81 MG TAB PO SCH (09:34)
[2022-02-24] MEDS: lamoTRIgine 100 MG TAB PO SCH ×2 (09:35→21:15)
[2022-02-24] MEDS: levETIRAcetam 500 MG/5 ML VIAL SLOW IVP SCH (09:35)
[2022-02-24] MEDS: DULoxetine 30 MG CAP PO SCH (09:35)
[2022-02-24] MEDS: Lisinopril 20 MG TAB PO SCH ×2 (09:37→21:16)
[2022-02-24] MEDS ORDERED: levETIRAcetam 500 MG TAB PO SCH ×2 (13:15)
[2022-02-24] MEDS ORDERED: Divalproex Sodium DR 500 MG TAB PO SCH (13:30)
[2022-02-24] MEDS: Atorvastatin Calcium 20 MG TAB PO SCH (21:14)
[2022-02-24] MEDS: levETIRAcetam 500 MG TAB PO SCH (21:16)
[2022-02-25 04:51] LABS: #Eosinphils 0.1 thou/uL (0.0-0.7); #Monocytes 0.8 thou/uL (0.11-0.59); #Neutrophils 6.4 thou/uL (1.40-6.50); %Basophils 0.4 % (0.0-1.0); %Eosinophils 1.4 % (0.0-10.0); %Monocytes 7.7 % (0.0-10.0); %Neutrophils 61.6 % (42.0-75.0); Hemoglobin 13.3 g/dL (14.0-18.0); Mean Corpuscular HGB CONC 33.8 g/dL (32.0-36.0); Mean Corpuscular Hemoglobin 30.3 pg (27.0-31.0); Mean Corpuscular Volume 89.5 fL (78.0-98.0); Mean Platelet Volume 7.1 fL (7.4-10.4); Platelet Count 285 thou/uL (130-400); RBC Distribution Width 12.2 % (11.5-14.5); Red Blood Cell (RBC) Count 4.38 mill/uL (4.70-6.10); White Blood Cell (WBC) Count 10.3 thou/uL (4.8-10.8)
[2022-02-25] MEDS: Aspirin Chewable 81 MG TAB PO SCH (09:57)
[2022-02-25] MEDS: lamoTRIgine 100 MG TAB PO SCH ×2 (09:58→21:04)
[2022-02-25] MEDS: levETIRAcetam 500 MG TAB PO SCH (09:58)
[2022-02-25] MEDS: Lisinopril 20 MG TAB PO SCH ×2 (09:59→21:03)
[2022-02-25] MEDS: DULoxetine 30 MG CAP PO SCH (09:59)
[2022-02-25] MEDS: Divalproex Sodium DR 500 MG TAB PO SCH ×2 (09:59→21:03)
[2022-02-25] MEDS ORDERED: Divalproex Sodium DR 500 MG TAB PO SCH (12:00)
[2022-02-25] MEDS: Atorvastatin Calcium 20 MG TAB PO SCH (21:03)
[2022-02-25 21:47] LABS: Troponin I Less than 0.010 ng/mL (< 0.028)
[2022-02-26 07:00] LABS: #Eosinphils 0.4 thou/uL (0.0-0.7); #Lymphocytes 2.8 thou/uL (1.20-3.40); #Neutrophils 7.9 thou/uL (1.40-6.50); %Basophils 0.2 % (0.0-1.0); %Eosinophils 3.6 % (0.0-10.0); %Lymphocytes 22.8 % (21.0-51.0); %Monocytes 8.4 % (0.0-10.0); Hemoglobin 13.5 g/dL (14.0-18.0); Mean Corpuscular HGB CONC 32.6 g/dL (32.0-36.0); Mean Corpuscular Hemoglobin 29.4 pg (27.0-31.0); Mean Corpuscular Volume 90.2 fL (78.0-98.0); Mean Platelet Volume 7.2 fL (7.4-10.4); Platelet Count 311 thou/uL (130-400); RBC Distribution Width 12.3 % (11.5-14.5); Red Blood Cell (RBC) Count 4.61 mill/uL (4.70-6.10); White Blood Cell (WBC) Count 12.1 thou/uL (4.8-10.8)
[2022-02-26 07:22] LABS: ALT (SGPT) 9 U/L (8-55); AST (SGOT) 9 U/L (5-34); Albumin 3.9 g/dL (3.5-5.0); Alkaline Phosphatase 62 U/L (40-110); Anion Gap 14 mmol/L (10-20); BUN (Urea Nitrogen) 12 mg/dL (8.9-20.6); Bilirubin, Total 0.3 mg/dL (0.2-1.2); Calc. Creatinine Clearance 137 mL/min (70-130); Calcium 8.7 mg/dL (7.8-10.44); Carbon Dioxide 26 mmol/L (22-29); Chloride 101 mmol/L (98-107); Estimated GFR 86; Globulin 2.7 g/dL (2.4-3.5); Glucose 116 mg/dL (70-105); Magnesium 2.1 mg/dL (1.6-2.6); Potassium 4.4 mmol/L (3.5-5.1); Protein, Total 6.6 g/dL (6.0-8.3); Sodium 137 mmol/L (136-145)
[2022-02-26] MEDS: DULoxetine 30 MG CAP PO SCH (09:35)
[2022-02-26] MEDS: Divalproex Sodium DR 500 MG TAB PO SCH (09:35)
[2022-02-26] MEDS: lamoTRIgine 100 MG TAB PO SCH (09:36)
[2022-02-26] MEDS: Lisinopril 20 MG TAB PO SCH (09:36)
[2022-02-26] MEDS: Aspirin Chewable 81 MG TAB PO SCH (09:37)
[2022-02-26 16:21] VITALS: BP 127/92; TEMP 98
== END 2022-02-26 16:40 | disposition home or self-care (01) | DRG 101 ==
LOC: ERS 18:55 → ERHOLD 20:31 → 2SW 23:42 → OBSVTOIN 02-25 09:23
PROVIDERS: ADMIT Internal Medicine; ATTEND Hospitalist
DX: G40.919 Epilepsy, unspecified, intractable, without status epilepticus (principal); G45.9 Transient cerebral ischemic attack, unspecified; G81.94 Hemiplegia, unspecified affecting left nondominant side; G47.33 Obstructive sleep apnea (adult) (pediatric); I25.10 Atherosclerotic heart disease of native coronary artery without angina pectoris; G43.909 Migraine, unspecified, not intractable, without status migrainosus; F17.210 Nicotine dependence, cigarettes, uncomplicated; I10 Essential (primary) hypertension; F19.10 Other psychoactive substance abuse, uncomplicated; E66.9 Obesity, unspecified; J45.909 Unspecified asthma, uncomplicated; Z20.822 Contact with and (suspected) exposure to COVID-19; Z91.041 Radiographic dye allergy status; I25.2 Old myocardial infarction; Z91.010 Allergy to peanuts; Z91.013 Allergy to seafood; Z91.018 Allergy to other foods; Z79.82 Long term (current) use of aspirin; Z79.899 Other long term (current) drug therapy; Z82.49 Family history of ischemic heart disease and other diseases of the circulatory system; Z68.38 Body mass index [BMI] 38.0-38.9, adult
CPT/HCPCS: 36415; 36416; 70450; 80053; 80061; 80164; 80175; 80306; 82550; 83735; 84443; 84484; 85025; 85610; 85730; 93005; 93010; 95712; 95816; 95819; 95957; 96374; 96375; 96376; G0378; J1953; J2060; U0003; U0005

== ENCOUNTER 2022-09-28 17:41 | Inpatient (IN) | payer MEDICAID, OTHER ==
[2022-09-28 18:25] LABS: #Basophils 0.1 thou/uL (0.0-0.2); #Eosinphils 0.2 thou/uL (0.0-0.7); #Lymphocytes 2.5 thou/uL (1.20-3.40); #Monocytes 0.7 thou/uL (0.11-0.59); #Neutrophils 3.8 thou/uL (1.40-6.50); %Eosinophils 2.8 % (0.0-10.0); %Lymphocytes 34.2 % (21.0-51.0); %Monocytes 9.3 % (0.0-10.0); %Neutrophils 52.6 % (42.0-75.0); Hemoglobin 13.5 g/dL (14.0-18.0); Mean Corpuscular HGB CONC 34.5 g/dL (32.0-36.0); Mean Corpuscular Hemoglobin 29.7 pg (27.0-31.0); Mean Corpuscular Volume 86.1 fl (78.0-98.0); Platelet Count 303 10x3/uL (130-400); RBC Distribution Width 12.1 % (11.5-14.5); Red Blood Cell (RBC) Count 4.53 mill/uL (4.70-6.10); White Blood Cell (WBC) Count 7.3 10x3/uL (4.8-10.8)
[2022-09-28] MEDS ORDERED: LORazepam 2 MG/ML SYR.(CARPUJECT) ONE (18:40)
[2022-09-28 18:46] LABS: ALT (SGPT) 22 U/L (8-55); AST (SGOT) 18 U/L (5-34); Albumin 4.2 g/dL (3.5-5.0); Alkaline Phosphatase 65 U/L (40-110); Anion Gap 13 mmol/L (10-20); BUN (Urea Nitrogen) 6 mg/dL (8.9-20.6); Bilirubin, Total 0.3 mg/dL (0.2-1.2); Calc. Creatinine Clearance 0 mL/min (70-130); Calcium 9.3 mg/dL (7.8-10.44); Carbon Dioxide 24 mmol/L (22-29); Chloride 108 mmol/L (98-107); Estimated GFR 97; Glucose 96 mg/dL (70-105); Potassium 4.3 mmol/L (3.5-5.1); Protein, Total 7.2 g/dL (6.0-8.3); Sodium 141 mmol/L (136-145)
[2022-09-28 19:34] LABS: Bacteria/HPF None Seen HPF (None Seen); Bilirubin Negative (Negative); Blood, Urine Trace (Negative); Clarity Clear (Clear); Glucose, Urine (Dipstick) Normal (Negative); Ketone, Urine Trace mg/dL (Negative); Leukocyte 500 Leu/uL (Negative); Nitrite Negative (Negative); Protein, Urine (Dipstick) Negative (Neg-Trace); Specific Gravity, Urine 1.018 (1.002-1.036); Squamous Epithelial 0-3 HPF (0-3); Urobilinogen Normal mg/dL (Less than 2); WBC/HPF 21-50 HPF (0-3); pH, Urine 5.5 (5.0-9.0)
[2022-09-28 19:53] LABS: Amphetamine Not Detected (NotDetected); Barbiturates Screen Not Detected (NotDetected); Benzodiazepine Screen Not Detected (NotDetected); Cocaine Metabolite Screen Not Detected (NotDetected); Methadone Not Detected (NotDetected); Methamphetamine Detected (NotDetected); Opiate Screen Not Detected (NotDetected); Oxycodone Screen Not Detected (NotDetected); Phencyclidine (PCP) Not Detected (NotDetected); THC/Cannabinoid Screen Detected (NotDetected); Tricyclic Screen Not Detected (NotDetected)
[2022-09-28 21:32] LABS: SARS-CoV-2 NAA Rapid Test Not Detected (NotDetected)
[2022-09-28] MEDS ORDERED: levETIRAcetam 500 MG/5 ML VIAL ONE (23:37)
[2022-09-28] MEDS ORDERED: Lorazepam 2 MG/ML VIAL SLOW IVP PRN (23:55)
[2022-09-29 05:03] VITALS: BMI 37.4
[2022-09-29 07:02] LABS: Anion Gap 10 mmol/L (10-20); BUN (Urea Nitrogen) 5 mg/dL (8.9-20.6); Calc. Creatinine Clearance 139 mL/min (70-130); Carbon Dioxide 27 mmol/L (22-29); Chloride 107 mmol/L (98-107); Estimated GFR 90; Glucose 118 mg/dL (70-105); Sodium 140 mmol/L (136-145)
[2022-09-29 07:09] LABS: #Eosinphils 0.3 thou/uL (0.0-0.7); #Lymphocytes 1.8 thou/uL (1.20-3.40); #Monocytes 0.7 thou/uL (0.11-0.59); #Neutrophils 3.5 thou/uL (1.40-6.50); %Basophils 0.7 % (0.0-1.0); %Eosinophils 4.9 % (0.0-10.0); %Lymphocytes 28.7 % (21.0-51.0); %Monocytes 10.5 % (0.0-10.0); %Neutrophils 55.3 % (42.0-75.0); Hemoglobin 13.6 g/dL (14.0-18.0); Mean Corpuscular HGB CONC 33.4 g/dL (32.0-36.0); Mean Corpuscular Hemoglobin 29.2 pg (27.0-31.0); Mean Corpuscular Volume 87.5 fl (78.0-98.0); Mean Platelet Volume 8.2 fL (7.4-10.4); Platelet Count 288 10x3/uL (130-400); RBC Distribution Width 12.2 % (11.5-14.5); Red Blood Cell (RBC) Count 4.64 mill/uL (4.70-6.10); White Blood Cell (WBC) Count 6.4 10x3/uL (4.8-10.8)
[2022-09-29] MEDS: lamoTRIgine 100 MG TAB PO SCH ×2 (08:45→21:51)
[2022-09-29] MEDS: Divalproex Sodium DR 500 MG TAB PO SCH ×3 (08:45→21:51)
[2022-09-29] MEDS: levETIRAcetam 500 MG/5 ML VIAL SLOW IVP SCH ×2 (08:47→21:51)
[2022-09-29] MEDS ORDERED: Magnevist 469MG/ML 20 ML VIAL ONE (13:16)
[2022-09-30] MEDS: levETIRAcetam 500 MG/5 ML VIAL SLOW IVP SCH (08:37)
[2022-09-30] MEDS: lamoTRIgine 100 MG TAB PO SCH (08:42)
[2022-09-30] MEDS: Divalproex Sodium DR 500 MG TAB PO SCH (08:44)
[2022-09-30] MEDS ORDERED: FLU VACC QS2022-23(6MOS UP)/PF 60 MCG/0.5 ML SYRINGE IM ONE (09:00)
[2022-09-30 15:55] VITALS: BP 119/82; TEMP 98.7
== END 2022-09-30 15:57 | disposition home or self-care (01) | DRG 918 ==
LOC: ERS 17:41 → CCU 23:31 → T4-A 09-29 09:30
PROVIDERS: ADMIT Family Medicine; ATTEND Family Medicine
DX: T43.651A Poisoning by methamphetamines accidental (unintentional), initial encounter (principal); M62.82 Rhabdomyolysis; G40.901 Epilepsy, unspecified, not intractable, with status epilepticus; Z20.822 Contact with and (suspected) exposure to COVID-19; T42.6X6A Underdosing of other antiepileptic and sedative-hypnotic drugs, initial encounter; I10 Essential (primary) hypertension; G47.33 Obstructive sleep apnea (adult) (pediatric); J45.909 Unspecified asthma, uncomplicated; F17.210 Nicotine dependence, cigarettes, uncomplicated; F15.10 Other stimulant abuse, uncomplicated; F12.10 Cannabis abuse, uncomplicated; Z91.14 Patient's other noncompliance with medication regimen; Z91.041 Radiographic dye allergy status; Z91.010 Allergy to peanuts; Z91.018 Allergy to other foods; Z79.899 Other long term (current) drug therapy; Z79.82 Long term (current) use of aspirin; I25.2 Old myocardial infarction; Z86.73 Personal history of transient ischemic attack (TIA), and cerebral infarction without residual deficits
CPT/HCPCS: 36415; 70553; 80048; 80053; 80164; 80175; 80306; 81003; 81015; 85025; 93005; 93010; 95816; 95819; 95957; 96365; 96375; A9579; J1650; J1953; J2060; U0002